=== PATIENT | female | born 1950 | race Caucasian/White ===

== ENCOUNTER 2017-01-06 11:05 | Inpatient (IN) ==
[2017-01-06] MEDS ORDERED: VALTREX PO SCH (12:00)
[2017-01-06] MEDS ORDERED: REMERON PO SCH (12:00)
--- NOTE | 2017-01-06 12:49 | Diag Imaging Result Doc PS360 ---
CHEST-2 VIEWS - 01/06/2017 INDICATION: CHF TECHNIQUE: COMPARISON: 11/06/2016 FINDINGS: There is a moderate left basilar pleural effusion. There is slight worsening cardiomegaly and mild pulmonary vascular congestion. No significant infiltrates or edema. IMPRESSION: Worsening from prior. Electronically signed by Stevan Martínez 01/06/2017 12:46 PM
--- NOTE | 2017-01-06 13:16 | Diag Imaging Result Doc PS360 ---
US ABDOMEN-COMPLETE - 01/06/2017 INDICATION: distension COMPARISON: CT from 10/16/2013 FINDINGS: There is a small right renal midpole cortical mass measuring about 1.3 cm. This is stable from the exam of 2013. There are a couple of small cysts in the liver measuring up to 2 cm. Liver background echotexture is somewhat fatty. The patient is not nothing by mouth. The gallbladder is mostly collapsed. No gallstones or inflammation. Common bile duct measures 3 mm. Aorta IVC and main portal vein are patent. Common bile duct measures 3 mm. The left kidney is normal. No abdominal free fluid. IMPRESSION: 1. Small right renal cortical nodule or complicated cyst stable from the prior CT. 2. Mild fatty liver. Benign cysts in the liver. Electronically signed by Stevan Martínez 01/06/2017 1:14 PM
[2017-01-06] MEDS ORDERED: DUONEB (A & A) INH PRN (13:51)
[2017-01-06] MEDS: LASIX 100 MG in NS 90 ML IV SCH (13:55)
[2017-01-06] MEDS ORDERED: ZAROXOLYN PO ONE (14:00)
--- NOTE | 2017-01-06 14:12 | HISTORY AND PHYSICAL ---
[employer] OFFICER: Dr. Naseem Srivastava. CHIEF COMPLAINT: Shortness of breath. HISTORY OF PRESENT ILLNESS: Ms. Luong is a pleasant, 66-year-old female with a history of congestive heart failure, lymphoma, chronic atrial fibrillation on anticoagulation, and also a history of pericardial tamponade status post pericardial window, who presents directly from Dr. Srivastava's office with progressive shortness of breath over the past week, along with epigastric fullness. She has been followed by Dr. Srivastava, has been trying to diurese at home without any success. She remains short of breath and has worsening extremity edema. Dr. Srivastava requested that we admit the patient directly to the [facility]. We are currently awaiting labs, but Dr. Srivastava has ordered diagnostics and Lasix drip. She denies any overt chest pain, but does report orthopnea, worsening lower extremity and abdominal edema, and dyspnea on exertion. She is now going to be admitted for congestive heart failure exacerbation. PAST MEDICAL HISTORY: 1. Non-Hodgkin lymphoma. 2. History of pericardial effusion status post window. 3. Chronic atrial fibrillation. 4. COPD. SURGICAL HISTORY: Bilateral tubal ligation, right wrist surgery, left femur ORIF, stem-cell transplant, port placement and removal, partial hysterectomy. SOCIAL HISTORY: Patient quit smoking in 2013. She reports occasional wine usage. She denies illicit drug use. She is . She lives in [facility]. FAMILY HISTORY: Renal cell cancer in brother, breast cancer in sister, coronary disease in both father and mother, as well as diabetes. HOME MEDICATIONS: Currently being compiled. ALLERGIES: Codeine. PHYSICAL EXAMINATION: VITAL SIGNS: Blood pressure is 98/77, heart rate 61, respiratory rate 16, O2 saturation 99% on room air and temperature is 97.7 degrees. GENERAL: This is a pleasant, 66-year-old female, lying in a hospital bed in no acute distress. NEUROLOGIC: The patient is alert and oriented. She follows commands without focal deficits. HEENT: Head is atraumatic, normocephalic. Her pupils are equal, round, and reactive to light. Oral mucosa is moist. NECK: Trachea is midline. There is no JVD. CHEST: Crackles bilaterally. CV: Irregular rate and rhythm. S1 and S2 is noted. GI: Slightly distended and firm, but no pain to palpation. Hypoactive bowel sounds. EXTREMITIES: 2+ edema bilaterally. Pulses diminished, but palpable. DIAGNOSTIC DATA: Pending. ASSESSMENT/PLAN: 1. Acute on chronic heart failure exacerbation: Echocardiogram has been ordered, as well as Lasix drip, digoxin, Zaroxolyn and Lopressor. We will follow strict intake/output and daily weights. Cardiology is following. 2. Chronic atrial fibrillation: We will continue her home medications, including metoprolol and anticoagulant. We will follow telemetry and check thyroid function. 3. History of lymphoma: Chronic and stable, aware. 4. Chronic obstructive pulmonary disease: Will add as-needed nebulizers and check a chest x-ray. 5. Deep vein thrombosis prophylaxis with home anticoagulant. Further recommendations to follow. Dictated by PRICILLA Ardon for Jose Max MD cc: PRICILLA Ardon MD Peter Johnson, MD
[2017-01-06 14:31] LABS: BASO% 0.4 % (0.0-0.8); EOS# 0.16 X1000 (0.0-0.7); EOS% 2.2 % (0.0-10.0); HEMOGLOBIN 12.7 g/dL (12.0-16.0); LYMPH% 24.3 % (20.5-51.1); MANUAL DIFF NEEDED? YES; MCH 38.5 PG (27-31); MCHC 34.3 g/dL (33-37); MCV 112.1 FL (81-99); MONO# 0.65 X1000 (0.11-0.59); MONO% 8.8 % (1.7-9.3); MPV 10.8 FL (7.4-10.4); NEUT% 64.3 % (42.2-75.2); PLT 144 X1000 (130-400)
[2017-01-06 14:36] LABS: INR 1.24; PROTIME 13.2 Seconds (9.2-11.7)
[2017-01-06 14:46] LABS: EOS 2 % (1-10); LYMPHS 20 % (21-51); MONO 7 % (1-9)
[2017-01-06 15:01] LABS: ALBUMIN 3.7 g/dL (3.5-5.0); CALCIUM 9.2 mg/dL (8.8-10.2); POTASSIUM 3.5 mmol/L (3.5-5.1); TOTAL BILIRUBIN 1.65 mg/dL (0.20-1.00); TOTAL PROTEIN 9.5 g/dL (6.3-8.3)
[2017-01-06] MEDS: LANOXIN PO SCH (15:36)
--- NOTE | 2017-01-06 15:36 | EKG Report ---
Test Performed on : 01/06/2017 3:18:04 PM Test Reason : CHF Blood Pressure : / mmHG Vent. Rate : 063 BPM Atrial Rate : 208 BPM P-R Int : 000 ms QRS Dur : 092 ms QT Int : 458 ms P-R-T Axes : 000 076 180 degrees QTc Int : 468 ms Atrial fibrillation. Low voltage QRS RSR' or QR pattern in V1 suggests right ventricular conduction delay T wave abnormality, consider anterior ischemia Abnormal ECG When compared with ECG of 01-APR-2016 15:16, DIffuse T wave inversion in V1-V6 - appears historical Confirmed by Wilmar Srivastava DO ([id number]) on 01/09/2017 8:07:24 PM
[2017-01-06] MEDS: LOPRESSOR PO SCH (15:37)
[2017-01-06] MEDS: PRILOSEC PO SCH (15:38)
[2017-01-06] MEDS: PREDNISONE PO SCH (15:38)
[2017-01-06] MEDS: PAXIL PO SCH (15:38)
[2017-01-06] MEDS: DUONEB (A & A) INH SCH ×3 (15:43→23:54)
[2017-01-06] MEDS: PERCOCET-5 PO PRN (15:52)
--- NOTE | 2017-01-06 16:58 | ECHO REPORT ---
ORDER DATE: 01/06/2017 INDICATION: Congestive heart failure. FINDINGS: 1. Right atrium is mildly enlarged at 4.9 cm. Moderate tricuspid regurgitation. RV systolic pressure is measured at 39. 2. Right ventricle does appear to be enlarged with bowing of the intraventricular septum to the left. This appears to be most prominent in diastole consistent with right ventricular volume overload. 3. No significant pulmonic insufficiency. 4. Mild left atrial enlargement at 4 cm. 5. No mitral prolapse. Mild mitral regurgitation. 6. Normal LV size, end-diastolic dimension of 4.1. No evidence of left ventricular hypertrophy. Likely normal LV systolic function. The estimated EF is in the range of 55%. 7. Aortic valve opens well. No evidence of stenosis or insufficiency. 8. Aorta appears normal in visualized segments. 9. No pericardial effusion. There does appear to be a significant pleural effusion present. 10. Aorta appears normal in visualized segments. cc: MD Jose Garza MD
[2017-01-06 18:43] LABS: URINE CULTURE NEEDED? NO; URINE MICRO REVIEW NEEDED? NO; URINE SOURCE CLEAN CATCH
[2017-01-06 19:19] LABS: BILIRUBIN URINE NEGATIVE (NEGATIVE); BLOOD URINE NEGATIVE (NEGATIVE); COLOR YELLOW; GLUCOSE URINE NEGATIVE (NEGATIVE); LEUKOCYTES URINE NEGATIVE (NEGATIVE); NITRITE URINE NEGATIVE (NEGATIVE); PH URINE 6.5; PROTEIN URINE NEGATIVE (NEGATIVE); SP GRAVITY URINE 1.005; TURBIDITY URINE CLEAR (CLEAR); UROBILINOGEN URINE NORMAL (NORMAL)
[2017-01-06 19:21] LABS: UR EPITHELIAL CELLS <10 /HPF (<10); URINE BACTERIA NEGATIVE /HPF; URINE RBC <10 /HPF (<10); URINE WBC <10 /HPF (<10)
[2017-01-06] MEDS: REMERON PO SCH (20:20)
--- NOTE | 2017-01-07 04:33 | CONSULTATION ---
DATE OF CONSULTATION: 01/06/2017 REQUESTING PHYSICIAN: Dr. Naseem Srivastava. REASON FOR CONSULTATION: Shortness of breath. HISTORY OF PRESENT ILLNESS: Ms. Luong is a 66-year-old, white female with extensive tobacco history (nonsmoker since 2013) who underwent a CT-guided biopsy of an anterior mediastinal mass and biopsy was consistent with a follicular lymphoma. Repeat biopsy was performed and the 2nd biopsy revealed a B-cell lymphoma, consistent with a diffuse large B-cell lymphoma. Patient continued to have progression of disease and ultimately required a stem cell transplant in 2014. This was an allogeneic transplant received from her brother. She reports she was on immunosuppression for over a year. This has been subsequently weaned to prednisone 10 mg per day. She has had some lddtk-nzqzjj-omed disease affecting her GI tract by her report. The patient was seen by her oncologist at [place] in late August or early September of this year, and a PET scan at that time revealed no evidence of FDG avid disease. She did have an interval increase in a moderate left-sided pleural effusion along with a small pericardial effusion and 4 chamber cardiomegaly. Over the last 4-5 weeks, patient has had increasing shortness of breath with increasing lower extremity edema. She now has to sleep in a recliner due to dyspnea. She has shortness of breath while walking across the room. She had an echocardiogram performed today which revealed normal LV function with moderate tricuspid regurgitation and an RV systolic pressure of 39. The patient has also noted increasing facial edema and has had some vessels break above her eyelids when she bends over. She has also noted some nodularity in her abdominal wall. PAST MEDICAL HISTORY/PROBLEM LIST: 1. 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 2. Status post allogeneic stem cell transplant. 3. Middi-kmowlm-fogd disease. 4. History of atrial fibrillation. 5. Pericardial effusion, status post subxiphoid pericardial window. 6. Hip fracture, status post hip replacement. SOCIAL HISTORY: Prior tobacco use. Occasional alcohol use. FAMILY HISTORY: Notable for breast cancer in a sister, coronary artery disease, diabetes mellitus, and renal cell carcinoma. PHYSICAL EXAMINATION: General: Reveals a well-developed, well-nourished, white female resting comfortably and in no distress. Vital Signs: BP 93/66, heart rate 66, respiration rate 16, oxygen saturation 99% on room air. HEENT: There is mild swelling of the face with slight facial asymmetry. The right cheek appears to be slightly larger than the left. There is mild bruising above the right eyelid. Oropharynx is clear. Neck: Supple. Chest: Reveals bilateral crackles, predominantly in the bases. Cardiac Examination: Regular rate. Normal S1, normal S2. Abdomen: Soft. There are some nodular areas below the skin surface. Extremities: Revealed 2+ pitting edema. LABORATORY DATA: Chest x-ray reveals left basilar effusion, cardiomegaly, with mild vascular congestion. White blood count 7.41, hemoglobin 12.7, platelet count 144,000, MCV is significantly elevated at 112, platelet count 144,000. Differential appears to be normal. Sodium 135, potassium 3.5, chloride 92, bicarbonate 31, BUN 25, creatinine 1.2. Bilirubin 1.65, AST 75, ALT 15, alkaline phosphatase 247. Total protein is significantly elevated at 9.5 g/dL. ProBNP is elevated at 5770. IMPRESSION: Complicated 66-year-old, white female with a history of tobacco use, history of chronic obstructive pulmonary disease, history of allogeneic stem cell transplant, history of pericardial effusion requiring pericardial window who presents with increasing shortness of breath, fluid overload on examination but evidence of prerenal status in chemistries, hyperproteinemia, macrocytosis, CBC. The patient reports occasional chills but no other signs of infectious process. Differential for presentation currently is broad. She has had a pericarditis and therefore constrictive pericarditis is in the differential but her heart size has actually increased over her last chest x-ray, making this less likely and this was not identified on echocardiogram. Pulmonary emboli is in the differential but previous CT angiogram last year and previous venous Dopplers have been negative, although that does not completely rule out this as part of the current etiology. The patient has had an allogeneic transplant and therefore, pulmonary venoocclusive disease is in the differential as well. The patient has moderate chronic obstructive pulmonary disease on pulmonary function tests earlier this year but her degree of obstruction clearly would not explain her current presentation. This appears to be more complex and simple diastolic/fluid overload or chronic obstructive pulmonary disease. RECOMMENDATIONS: 1. Proceed with CT scan of the thorax to ensure she does not have lymphadenopathy leading to venocaval obstruction. 2. Pulmonary function studies, although I doubt the etiology for her dyspnea will be identified on this study. 3. Consider right and left heart catheterization. If the patient has significant pulmonary hypertension with evidence of pulmonary edema but normal wedge pressure, venoocclusive disease would be more likely and may require a thoracoscopic wedge biopsy for confirmation. 4. Check immunoglobulin levels and a serum protein electrophoresis, given her hyperproteinemia. 5. Consider oncology evaluation for their input into the current presentation. cc: MD Jose Gasca MD
[2017-01-07] MEDS: DUONEB (A & A) INH SCH ×6 (05:03→23:02)
[2017-01-07 05:10] LABS: HEMATOCRIT 33.1 % (37.0-47.0); HEMOGLOBIN 11.3 g/dL (12.0-16.0); MCH 36.7 PG (27-31); MCHC 34.1 g/dL (33-37); MCV 107.5 FL (81-99); MPV 10.6 FL (7.4-10.4); RBC 3.08 XMIL (4.2-5.4)
[2017-01-07 05:31] LABS: AGAP 13; BUN 25 mg/dL (8-22); CALCIUM 9.2 mg/dL (8.8-10.2); CHLORIDE 92 mmol/L (98-107); CK PROFILE 53 U/L (24-173); COSMO 281; HDL 22 mg/dL (45-65); LDL 70 mg/dL; POTASSIUM 2.9 mmol/L (3.5-5.1); SODIUM 138 mmol/L (136-145); TCO2 33 mmol/L (25-35); TRIGLYCERIDES 174 mg/dL (35-135); VLDL 35 mg/dL
[2017-01-07] MEDS: PRILOSEC PO SCH (06:04)
[2017-01-07] MEDS: PERCOCET-5 PO PRN ×2 (08:09→14:41)
[2017-01-07] MEDS: LOPRESSOR PO SCH (08:11)
[2017-01-07] MEDS: PAXIL PO SCH (08:11)
[2017-01-07] MEDS: PREDNISONE PO SCH (08:11)
[2017-01-07] MEDS: LANOXIN PO SCH (08:12)
[2017-01-07] MEDS ORDERED: POTASSIUM CHLORIDE 40 MEQ/SWI 40 MEQ/100 ML IVPB IV ONE (08:26)
[2017-01-07] MEDS ORDERED: KLOR-CON PO ONE (08:27)
[2017-01-07] MEDS ORDERED: ZAROXOLYN PO ONE (09:48)
--- NOTE | 2017-01-07 10:06 | PROGRESS NOTE ---
DATE: 01/07/2017 SUBJECTIVE: She reports she feels better today. She has had a marked negative fluid output over the course of the last 12-24 hours. PHYSICAL EXAMINATION: Vital signs: Afebrile. Heart rates anywhere from the 50s to 80s. Blood pressure 116/86. Her I's and O's are -2.4 L for the course of the hospitalization. General: No acute distress. Cardiovascular: She sounds to be in an irregularly irregular but rate controlled rhythm. Her lower extremities show around 1+ lower extremity edema that are warm and well perfused. Her chest exam sounds relatively clear. No increased work of breathing. Abdomen is soft, nontender, and nondistended. PERTINENT DATA: Her white count is 6.7. Her hematocrit is 33. Platelet count is 154,000. D- dimer is 3.19. Sodium 138, potassium is 2.9. BUN 25, creatinine 1.2. Cardiac enzymes negative proBNP yesterday was 5770. ASSESSMENT: Heart failure with a predominance of right-sided type symptoms. PLAN: Her echocardiogram definitely showed right-sided volume overload. We will continue with IV diuresis. She was given 40 mEq of oral potassium this morning. I would like to additionally give her another 2.5 metolazone today and continue with diuresis. Tentative plan for cardiac catheterization in the morning via left and right heart catheterization. Risks, benefits, and alternatives of the procedure have been explained and she agrees to proceed. cc: MD Jose Garza MD
--- NOTE | 2017-01-07 10:13 | Diag Imaging Result Doc PS360 ---
CT THORAX W/O CONTRAST - 01/07/2017 INDICATION: dyspnea TECHNIQUE: A CT dose reduction protocol was used. COMPARISON: 04/01/2016 FINDINGS: Stable mild cardiomegaly. There is a small pericardial effusion that has decreased from prior. There are some shotty mediastinal lymph nodes but no adenopathy. There is a new trace right pleural effusion. There is a larger, but still small left pleural effusion. There is some retroperitoneal edema and possible mild adenopathy stable from prior. There are some stable small cysts in the liver. There is smooth intralobular septal thickening compatible with mild interstitial pulmonary edema. There is some stable pulmonary scarring in the apices. No significant infiltrates. Airways are clear. There are moderate degenerative changes of the spine. No acute or suspicious bony lesion. Stable moderate body wall edema. IMPRESSION: Mixed changes from prior. Mild pulmonary edema and small pleural effusions. Other findings as detailed above. Electronically signed by Stevan Martínez 01/07/2017 10:10 AM
[2017-01-07] MEDS ORDERED: ALBUTEROL NEB ONE (10:55)
[2017-01-07] MEDS: LOVENOX SUBQ SCH (11:40)
[2017-01-07] MEDS: LASIX 100 MG in NS 90 ML IV SCH (15:29)
--- NOTE | 2017-01-07 17:04 | PROGRESS NOTE ---
DATE: 01/07/2017 SUBJECTIVE: This patient states that she is feeling better. She is not complaining of shortness of breath or chest pain. The plan is to go ahead and get a cardiac cath tomorrow to see if there is any kind of arterial obstruction. She seems to understand the procedure, the risk, and the benefits. OBJECTIVE: Vital Signs: Temperature 98.1 degrees, pulse 76, respiratory rate 19, blood pressure 126/75. Oxygen saturation 97 on room air. HEENT: Head normocephalic. No trauma. PERRLA. Neck: Supple. No JVD. No masses. Central trachea. Chest: Mild rales at the bases. Abdomen: Soft, nontender, nondistended. No hepatosplenomegaly. Extremities: 3+ bilateral leg edema. No clubbing. No cyanosis. Neurological: The patient is alert and oriented x3. No focal neurological deficits. LABORATORY STUDIES: WBC 6.7, hemoglobin 11.3, hematocrit 33.1, platelets 154,000. Sodium 138, potassium 2.9, chloride 92, bicarbonate 33, BUN 25, creatinine 1.2, glucose 123, calcium 9.2. ASSESSMENT AND PLAN: 1. Qtzye-gg-yseccxw heart failure exacerbation, predominantly diastolic. Continue with the same management. She is on Lasix drip. Cardiology Department is following this patient closely. The plan is to get a cardiac cath tomorrow morning. We will continue to follow. 2. Hypokalemia. Will replace the potassium today. 3. Chronic atrial fibrillation. Continue with home medication, but her Eliquis has been stopped. Probably, we will restart this medication after the procedure. 4. History of lymphoma, chronic and stable. Continue to monitor. 5. Chronic obstructive pulmonary disease, not in exacerbation. 6. Deep vein thrombosis prophylaxis. Continue with Lovenox. cc: Jose Max MD
[2017-01-07] MEDS: REMERON PO SCH (20:14)
[2017-01-08] MEDS: DUONEB (A & A) INH SCH ×6 (03:15→22:50)
[2017-01-08] MEDS: PERCOCET-5 PO PRN ×2 (04:23→20:32)
[2017-01-08 05:06] LABS: HEMATOCRIT 33.4 % (37.0-47.0); HEMOGLOBIN 11.5 g/dL (12.0-16.0); MCHC 34.4 g/dL (33-37); MCV 110.2 FL (81-99); MPV 10.2 FL (7.4-10.4); RBC 3.03 XMIL (4.2-5.4)
[2017-01-08 05:33] LABS: CALCIUM 9.9 mg/dL (8.8-10.2); POTASSIUM 3.4 mmol/L (3.5-5.1)
[2017-01-08] MEDS: PRILOSEC PO SCH (06:08)
[2017-01-08] MEDS ORDERED: POTASSIUM CHLORIDE 20% LIQUID PO ONE (08:07)
[2017-01-08] MEDS ORDERED: MAGNESIUM SULFATE 2 GM/S.W.I. 2 GM/50 ML IVPB IV ONE (08:07)
[2017-01-08 08:16] LABS: INR 1.17; PROTIME 12.4 Seconds (9.2-11.7); PTT 30.1 Seconds (22.0-36.0)
[2017-01-08] MEDS: LANOXIN PO SCH (08:30)
[2017-01-08] MEDS: PREDNISONE PO SCH (08:31)
[2017-01-08] MEDS: LOPRESSOR PO SCH (08:31)
[2017-01-08] MEDS: PAXIL PO SCH (08:31)
[2017-01-08] MEDS: POTASSIUM CHLORIDE 20 MEQ/SWI 20 MEQ/100 ML IVPB IV SCH ×2 (08:38→14:27)
[2017-01-08] MEDS ORDERED: LOVENOX SUBQ SCH (09:00)
[2017-01-08] MEDS ORDERED: HEPARIN 1000 UNITS/NS 2,000 UNIT/1,000 ML IV.SOLN ONE (10:06)
[2017-01-08] MEDS: KEFZOL 1 GM/D5W 1 GM/50 ML IVPB IV SCH ×2 (10:37→17:33)
[2017-01-08] MEDS ORDERED: MORPHINE ONE (11:55)
[2017-01-08] MEDS ORDERED: CLAVE PUMP SET NO FILTER 12260 ONE (11:55)
[2017-01-08] MEDS ORDERED: CLAVE TWINSITE 32 IN 11959 ONE (11:55)
[2017-01-08] MEDS ORDERED: VERSED ONE (11:55)
[2017-01-08] MEDS ORDERED: NS 1,000 ML ONE (11:56)
[2017-01-08] MEDS ORDERED: NS 100 ML ONE (12:19)
--- NOTE | 2017-01-08 12:23 | PROGRESS NOTE ---
DATE: 01/08/2017 HISTORY OF PRESENT ILLNESS: Ms. Luong reports she feels better. Her breathing has improved overnight. She does report continued issues with swelling in her legs. PHYSICAL EXAMINATION: Her I's and O's are negative 7.3 L for the course of the hospitalization. She is afebrile. Heart rates in the 70s to 80s. Blood pressure is 103/73. General: She is in no acute distress. Cardiovascular: She sounds to be in an irregularly regular rhythm which is consistent with her atrial fibrillation. She has 1+ bilateral lower extremity edema in her bilateral lower extremities. Warm and well perfused. Chest: Sounds clear bilaterally. No increased work of breathing. Abdomen: Soft and nontender. Skin Exam: Shows erythematous changes with some streaking up the lateral portion of her right leg but otherwise somewhat diffuse involvement of her bilateral lower extremities from midshin down. LABORATORY DATA: Shows a white count of 7.6. Her hematocrit is 33. Platelet count 142,000. Sodium is 138, potassium 3.4. Her BUN is 24, creatinine is 1.1 Mag level is 1.3. ASSESSMENT: Heart failure with both right and a left-sided signs however right seems more prominent than left. PLAN: Her proBNP has reduced. We will continue her on her IV diuretics. She is due for right and left heart catheterization today. I have discussed her lower extremity erythema with the primary team and they may consider initiating antibiotics based on that. cc: MD Jose Garza MD
[2017-01-08] MEDS: LASIX 100 MG in NS 90 ML IV SCH (14:26)
[2017-01-08] MEDS: LOVENOX SUBQ SCH (14:27)
--- NOTE | 2017-01-08 14:29 | PROGRESS NOTE ---
DATE: 01/08/2017 SUBJECTIVE: No acute events overnight. This patient is getting today a cardiac cath. She is not complaining of chest pain or shortness of breath. Today she is presenting with bilateral leg redness. I do not see any source of infection only the erythema, no fever, no chills, but it looks like cellulitis. I will start this patient on Ancef and I will monitor this patient closely. OBJECTIVE: Vital Signs: Temperature 98.4 degrees, pulse 81, respiratory rate 18, blood pressure 103/73, O2 saturation 97% on room air. HEENT: Head normocephalic. No trauma. PERRLA. Neck: Supple. No JVD. No masses. Central trachea. Chest: Clear to auscultation. No wheezing. No rales. Abdomen: Soft, nontender, nondistended. No hepatosplenomegaly. Cardiovascular: RRR. Extremities: 3+ bilateral lower extremity edema with erythema up to the mid leg bilaterally, warm, not painful. Neurological: The patient is alert, oriented x3. No focal neurological deficits. LABORATORY: WBC 7.6, hemoglobin 11.5, hematocrit 33.4, platelets 142,000. Sodium 138, potassium 3.4, chloride 90, bicarbonate 31, BUN 24, creatinine 1.1, glucose 14,5 calcium 9.9, magnesium 1.3. BNP 3944. ASSESSMENT AND PLAN: 1. Acute on chronic heart failure exacerbation, systolic and diastolic. Continue with the same management. Cardiology Department following this patient. She is getting today a cardiac cath. We will wait for the recommendations. 2. Hypokalemia. I will replace the potassium today. 3. Hypomagnesemia has been replaced today. 4. Chronic atrial fibrillation. Continue with her home medications. But her Eliquis has been stopped for this procedure. 5. History of lymphoma, chronic and stable. Continue to monitor. 6. Possible bilateral lower extremity cellulitis. I do not see any source of infection. She is not having leukocytosis, fever or chills but it looks like cellulitis. Empirically I will start this patient on Ancef and I will continue to monitor this patient closely. 7. COPD not in exacerbation. 8. Deep vein thrombosis prophylaxis. Continue with the same management, she is on Lovenox. CRITICAL CARE TIME: 35 minutes. cc: Jose Max MD
[2017-01-08] MEDS ORDERED: MAALOX PLUS LIQUID PO PRN (14:30)
[2017-01-08] MEDS ORDERED: NS 1,000 ML IV SCH (15:00)
[2017-01-08] MEDS: REMERON PO SCH (20:32)
[2017-01-09] MEDS: KEFZOL 1 GM/D5W 1 GM/50 ML IVPB IV SCH ×3 (03:20→18:01)
[2017-01-09] MEDS: DUONEB (A & A) INH SCH ×6 (05:58→23:16)
[2017-01-09] MEDS: PRILOSEC PO SCH (06:05)
[2017-01-09 06:08] LABS: HEMATOCRIT 33.7 % (37.0-47.0); HEMOGLOBIN 11.5 g/dL (12.0-16.0); MCHC 34.1 g/dL (33-37); MCV 108.4 FL (81-99); MPV 10.8 FL (7.4-10.4); RBC 3.11 XMIL (4.2-5.4)
[2017-01-09 06:31] LABS: CALCIUM 9.2 mg/dL (8.8-10.2); POTASSIUM 3.6 mmol/L (3.5-5.1)
[2017-01-09] MEDS: PREDNISONE PO SCH (08:07)
[2017-01-09] MEDS: PAXIL PO SCH (08:07)
[2017-01-09] MEDS: LOPRESSOR PO SCH (08:07)
[2017-01-09] MEDS: LANOXIN PO SCH (08:07)
[2017-01-09] MEDS: PERCOCET-5 PO PRN ×2 (09:12→18:09)
[2017-01-09] MEDS: LOVENOX SUBQ SCH (10:16)
[2017-01-09] MEDS ORDERED: MAGNESIUM SULFATE 2 GM/S.W.I. 2 GM/50 ML IVPB IV ONE (12:33)
[2017-01-09] MEDS: LASIX 100 MG in NS 90 ML IV SCH (12:52)
--- NOTE | 2017-01-09 13:06 | PROGRESS NOTE ---
DATE: 01/09/2017 CHIEF COMPLAINT: Shortness of breath, swelling of the legs. SUBJECTIVE: Mrs. Luong is complaining of pain and redness of the left foot and some in the right foot. She denies having any chest pain. Her breathing is somewhat better. OBJECTIVE: Vital signs: Blood pressure is 113/69, temperature 98.6, pulse 77, respirations 18. General: She is awake, alert, follows commands. HEENT: Unremarkable. Chest: Diminished breath sounds at bases, no rales. Cardiac: Heart sounds are regular and rhythmic. She does have a 4th heart sound from the right side. Abdomen: Nontender, no masses, no hepatomegaly. Extremities: Showed edema with redness of the left leg with increased temperature, tenderness to touch. Less prominent on the right side. Neurological: Follows commands, moves four extremities. BLOOD WORK: Sodium 134, potassium 3.6, magnesium 1.6, chloride 92, carbon dioxide 33, BUN 22, creatinine 1.1. White count 7790, hemoglobin 11.5, platelet count 162,000. IMPRESSION: 1. Patient who presented with increasing dyspnea. She has progressive swelling of the lower extremities. Heart failure, right sided, is diagnosed. 2. History of B-cell lymphoma. 3. Status post allogenic stem cell transplant. 4. History of atrial fibrillation. 5. History of pericardial effusion. 6. Cellulitis versus gout. 7. suspect case of primary or secondary pulmonary vascular disease (arteriopathy ?) RECOMMENDATION: Will check a uric acid level now. Further advice will be forthcoming. Thank you for the opportunity to participate in her evaluation. cc: MD Jose Zhou MD [facility]
--- NOTE | 2017-01-09 14:28 | PROGRESS NOTE ---
DATE: 01/09/2017 Account #8 H. danyelle Juarez [id number]. SUBJECTIVE: No acute events overnight. This patient had a cardiac catheterization done yesterday. Cardiology department has been following this patient closely. Today she is not complaining of shortness of breath or chest pain. She still has some redness at the level of the lower extremities. Will continue to monitor closely. OBJECTIVE: Vital Signs: Temperature 98.6 degrees, pulse 77, respiratory rate 18, blood pressure 113/69, oxygen saturation 94 on room air. HEENT: Head normocephalic. No trauma. PERRLA. Neck: Supple. No JVD. No masses. Central trachea. Chest: Clear to auscultation. No wheezing. No rales. Abdomen: Soft, nontender, nondistended. No hepatosplenomegaly. Cardiovascular: RRR. Extremities: 3+ lower extremity edema bilaterally with erythema up to the mid leg bilaterally that is better than yesterday mostly on the left side. Neurological: The patient is alert and oriented x3. No focal neurological deficits. LABORATORY: WBC 7.7, hemoglobin 11.5, hematocrit 33.7, platelet 162,000. Sodium 134, potassium 3.6, chloride 92, bicarbonate 33, BUN 22, creatinine 1.1, glucose 111, calcium 9.2, magnesium 1.6. ASSESSMENT AND PLAN: 1. Acute on chronic heart failure exacerbation, systolic and diastolic. Continue with the same management. Cardiology Department is following this patient closely status post cardiac catheterization. We will continue following their recommendations. 2. Hypokalemia resolved. 3. Hypomagnesemia resolved. 4. Chronic atrial fibrillation. Continue with Eliquis. 5. History of lymphoma. This is chronic and stable. Continue to monitor. 6. Possible bilateral lower extremity cellulitis. I do not see any lesion that can explain the infection, she is not having fever or chills or leukocytosis but this lesion looks like cellulitis. Empirically I started this patient already on Ancef and I will continue to monitor this patient closely, today her right lower extremity looks better compared with the left 1 but overall both of them are a little bit better. 7. Chronic obstructive pulmonary disease not in exacerbation. 8. Deep vein thrombosis prophylaxis. I put this patient back on Eliquis and I stopped the Lovenox. cc: Jose Max MD
[2017-01-09] MEDS: ELIQUIS PO SCH (20:26)
[2017-01-09] MEDS: REMERON PO SCH (20:26)
[2017-01-10] MEDS: KEFZOL 1 GM/D5W 1 GM/50 ML IVPB IV SCH ×3 (02:40→18:15)
[2017-01-10] MEDS: PERCOCET-5 PO PRN ×2 (02:42→18:17)
[2017-01-10] MEDS: DUONEB (A & A) INH SCH ×4 (03:17→23:27)
[2017-01-10] MEDS: PRILOSEC PO SCH (06:09)
[2017-01-10 06:26] LABS: CALCIUM 8.8 mg/dL (8.8-10.2); POTASSIUM 3.4 mmol/L (3.5-5.1)
[2017-01-10 06:50] LABS: BASO% 0.4 % (0.0-0.8); EOS# 0.57 X1000 (0.0-0.7); EOS% 7.3 % (0.0-10.0); HEMATOCRIT 33.1 % (37.0-47.0); HEMOGLOBIN 11.4 g/dL (12.0-16.0); LYMPH# 1.83 X1000 (1.2-3.4); LYMPH% 23.4 % (20.5-51.1); MANUAL DIFF NEEDED? YES; MCH 37.1 PG (27-31); MCHC 34.4 g/dL (33-37); MCV 107.8 FL (81-99); MONO# 0.85 X1000 (0.11-0.59); MONO% 10.9 % (1.7-9.3); MPV 10.6 FL (7.4-10.4); PLT 159 X1000 (130-400); RBC 3.07 XMIL (4.2-5.4)
[2017-01-10] MEDS ORDERED: SOLU-MEDROL IV ONE (07:53)
[2017-01-10] MEDS ORDERED: KLOR-CON PO ONE (08:04)
[2017-01-10] MEDS: LOPRESSOR PO SCH (08:08)
[2017-01-10] MEDS: LANOXIN PO SCH (08:08)
[2017-01-10] MEDS: PREDNISONE PO SCH (08:08)
[2017-01-10] MEDS: ELIQUIS PO SCH ×2 (08:08→20:29)
[2017-01-10] MEDS: PAXIL PO SCH (08:08)
[2017-01-10] MEDS: COLCRYS PO SCH ×5 (08:09→20:29)
--- NOTE | 2017-01-10 13:21 | PROGRESS NOTE ---
DATE: 01/10/2017 CHIEF COMPLAINT: Shortness of breath, swelling. SUBJECTIVE: Ms. Luong is feeling generally better. The redness of the leg has decreased significantly. We had done blood work on her that indicated her uric acid was 13.6 mg%, and we ordered a dose of Solu Medrol and several doses of colchicine. She is feeling better in that area. OBJECTIVE: Blood pressure is 106/74, temperature 98 degrees, pulse 74, respirations 18. She is awake, alert, oriented, in no distress. HEENT is unremarkable. Chest shows relatively clear lungs. Heart sounds are regular and rhythmic, questionable third heart sound on the left sternal border. Abdomen is obese, nontender. Extremities showed less redness of the legs. Pulses are good. Neurologic: Follows commands. Moves all 4 extremities. IMPRESSION: 1. 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 2. History of B cell lymphoma, status post allogeneic stem cell transplantation. 3. History of previous pericardial effusion. 4. Hyperuricemia/gout. RECOMMENDATIONS: At this point in time, I would suggest to continue present therapy. 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 Thank you for the opportunity to participate in her evaluation. cc: MD Jose Zhou MD MTDD
--- NOTE | 2017-01-10 13:30 | PROGRESS NOTE ---
DATE: 01/10/2017 SUBJECTIVE: No acute events overnight. Cardiology Department following this patient closely. She has and elevated uric acid. This patient has a gout flare and she has been treated today. I will keep this patient in the CIC unit. Tomorrow Dr. Naseem Srivastava will evaluate this patient. We will have a plan. OBJECTIVE: Vital Signs: Temperature 98 degrees, pulse 74, respiratory rate 18, blood pressure 106/74, oxygen saturation 92 on room air. Head: Normocephalic. No trauma. Eyes: PERRLA. Neck: Supple. No JVD. No masses. Central trachea. Chest: Clear to auscultation. No wheezing. No rales. Abdomen: Soft, nontender, nondistended. No hepatosplenomegaly. Cardiovascular: RRR. Extremities: 2+ lower extremity edema bilaterally with erythema that is almost resolved on the right side and is better on the left side. Neurological: The patient is alert, oriented x3. No focal neurological deficits. LABORATORY: WBC 7.8, hemoglobin 11.4, hematocrit 33.1, platelet 159,000. Sodium 137, potassium 3.4, chloride 89, bicarbonate 32, BUN 24, creatinine 1.1, glucose 122, calcium 8.8. ASSESSMENT AND PLAN: 1. Acute on chronic heart failure exacerbation, systolic and diastolic. Continue with the same management for now. Cardiology Department following this patient closely. 2. Hypokalemia, resolved. I will replace the potassium today. 3. Hypomagnesemia, resolved. 4. Chronic atrial fibrillation. Continue with Eliquis. 5. Gout flare. This patient has been treated today. I will continue monitoring and treating this patient. 6. Possible bilateral lower extremity cellulitis. Even though I did not see any source of infection, I started this patient on Ancef. Today we have a positive uric acid that is elevated and this is likely a gout flare. 7. Chronic obstructive pulmonary disease, not in exacerbation. 8. Deep vein thrombosis prophylaxis. Continue with the same management. CRITICAL CARE TIME: 35 minutes. cc: Jose Max MD
[2017-01-10] MEDS: LASIX 100 MG in NS 90 ML IV SCH (15:24)
[2017-01-10] MEDS: REMERON PO SCH (20:29)
[2017-01-11] MEDS: PERCOCET-5 PO PRN ×3 (02:19→20:32)
[2017-01-11] MEDS: KEFZOL 1 GM/D5W 1 GM/50 ML IVPB IV SCH ×3 (02:21→18:22)
[2017-01-11] MEDS: DUONEB (A & A) INH SCH ×6 (03:45→23:15)
[2017-01-11 06:22] LABS: BASO% 0.1 % (0.0-0.8); HEMATOCRIT 33.8 % (37.0-47.0); HEMOGLOBIN 11.5 g/dL (12.0-16.0); IMM GRAN# 0.02 X1000 (0.0-0.04); IMM GRAN% 0.2 % (0.0-0.5); LYMPH# 1.36 X1000 (1.2-3.4); LYMPH% 13.2 % (20.5-51.1); MANUAL DIFF NEEDED? YES; MCH 36.7 PG (27-31); MONO# 0.77 X1000 (0.11-0.59); MONO% 7.4 % (1.7-9.3); MPV 10.8 FL (7.4-10.4); NEUT% 79.1 % (42.2-75.2); PLT 164 X1000 (130-400); POTASSIUM 3.8 mmol/L (3.5-5.1); RBC 3.13 XMIL (4.2-5.4)
[2017-01-11] MEDS: PRILOSEC PO SCH (06:37)
--- NOTE | 2017-01-11 07:17 | Diag Imaging Result Doc PS360 ---
EXAM: CHEST-1 VIEW HISTORY: SOB TECHNIQUE: AP portable at 0500 COMMENT: There is cardiomegaly. Compared to the previous study of 01/06/2017 there has been improvement in the basilar opacities and the pleural effusion on the left. There may be some slight residual pulmonary edema. IMPRESSION: Improved pulmonary edema, left lower lobe atelectasis and left pleural effusion. Electronically signed by Viktor Kitchen 01/11/2017 7:15 AM
[2017-01-11 08:36] LABS: LYMPHS 10 % (21-51); MONO 4 % (1-9)
--- NOTE | 2017-01-11 09:17 | Extremity Venous Study ---
PROCEDURE NAME: Venous U/S Bilateral Legs - 01/07/2017 NEON LIGHT INSTALLER: Ryan REQUESTING PHYSICIAN: Dr. Kowalski INDICATION: Edema. FINDINGS: The deep and superficial veins of bilateral lower extremities were visualized along their course. All veins compressible, forward flow. No evidence of intraluminal thrombus. There was pulsatile signal noted in all locations. This can be seen in the setting of congestive heart failure. SUMMARY: No deep or superficial venous thrombosis seen in bilateral lower extremities. cc: MD Jose Zarco MD
[2017-01-11] MEDS: COLCRYS PO SCH ×2 (10:19→20:32)
[2017-01-11] MEDS: LANOXIN PO SCH (10:20)
[2017-01-11] MEDS: PAXIL PO SCH (10:20)
[2017-01-11] MEDS: ELIQUIS PO SCH ×2 (10:20→20:32)
[2017-01-11] MEDS: ZYLOPRIM PO SCH (10:20)
[2017-01-11] MEDS: LOPRESSOR PO SCH (10:21)
[2017-01-11] MEDS: PREDNISONE PO SCH (10:21)
[2017-01-11] MEDS: LASIX 100 MG in NS 90 ML IV SCH (14:02)
--- NOTE | 2017-01-11 14:37 | PROGRESS NOTE ---
DATE: 01/11/2017 SUBJECTIVE: No acute events overnight. Cardiology Department following this patient closely. She is still on furosemide drip. This patient also has a gout flare which is being treated. OBJECTIVE: Vital Signs: Temperature 97.8 degrees, pulse 88, respiratory rate 18, blood pressure 110/78, oxygen saturation 97% on room air. HEENT: Head normocephalic. No trauma. PERRLA. Neck: Supple. No JVD. No masses. Central trachea. Chest: Clear to auscultation. No wheezing. No rales. Abdomen: Soft, nontender, nondistended. No hepatosplenomegaly. Cardiovascular: Regular rate and rhythm. Extremities: There is 1-2+ lower extremity edema with some erythema at the level of the left foot, dorsal aspect. Neurological Examination: The patient is alert and oriented x3. No focal neurological deficits. LABORATORY: WBC 10.3, hemoglobin 11.5, hematocrit 33.8, platelets 164,000. Sodium 134, potassium 3.8, chloride 88, bicarbonate 31. BUN 35, creatinine 1.2. Glucose 235. Calcium 9. Pro-B-type natriuretic peptide 5641. ASSESSMENT AND PLAN: 1. Acute on chronic heart failure exacerbation, systolic and diastolic. Cardiology department following this patient closely. Continue with the same management for now. 2. Hypokalemia, resolved. 3. Hypomagnesemia, resolved. 4. Chronic atrial fibrillation. Continue with Eliquis. 5. Gout flare. Continue with the same management. 6. Possible bilateral lower extremity cellulitis. Even though I do not see any source of infection and this is likely related to gout flare, this patient has been treated with antibiotics. Probably tomorrow I will stop the treatment. 7. Chronic obstructive pulmonary disease, not in exacerbation. 8. Deep vein thrombosis prophylaxis. Continue with the same management. CRITICAL CARE TIME: Was 35 minutes. cc: Jose Max MD
--- NOTE | 2017-01-11 15:48 | PROGRESS NOTE ---
DATE: 01/11/2017 SUBJECTIVE: The patient reports she was doing much better over the course of the weekend. Her I's and O's are markedly negative being -13.8 L for the course of the hospitalization. PHYSICAL EXAMINATION: Vital Signs: She is afebrile, heart rate 88, blood pressure 110/70. General: In no acute distress. Cardiovascular: She sounds to be in an irregularly irregular rhythm. No murmurs. She has trace lower extremity edema. Chest: Examination sounds relatively clear to auscultation. Abdomen: Soft, nontender, nondistended. No obvious organomegaly. Skin: Examination is warm and dry throughout. PERTINENT DATA: Her white count is 10.3, hematocrit is 33.8, platelet count 164 ,000. Her sodium is 134, potassium 3.8, BUN 35, creatinine is 1.2. proBNP is 5641 with the last 1 being 3944. ASSESSMENT: Heart failure with predominantly right-sided symptoms. PLAN: Patient's cardiac catheterization numbers were reviewed with a wedge of 24, mean PA of 38, RA of 25, RV 50/15 with an LV end-diastolic pressure of 12. This would suggest predominantly elevation of right-sided pressures with a normal left-sided filling pressure. There must be a concern for pulmonary hypertension in this setting. In addition, she has a cardiac output and cardiac index which are low in the setting of a normal ejection fraction. She has a history of being followed at [place] for her lymphoma and subsequent treatment. We will likely try to arrange for followup at [place] for pulmonary hypertension evaluation. I believe we can discontinue her IV drip of furosemide and transition her over to 40 mg IV b.i.d. Hopefully we can eventually transition her over to oral medications within the next couple of days. Her gout flare that she was experiencing certainly seems to be much better. Her lower extremities are much improved with much less erythema and tenderness. Her cardiac cath this hospitalization demonstrated normal coronaries. cc: MD Jose Garza MD MTDD
[2017-01-11] MEDS: MIRALAX PO SCH (16:57)
[2017-01-11] MEDS: REMERON PO SCH (20:32)
[2017-01-11] MEDS: LASIX IV SCH (20:33)
--- NOTE | 2017-01-11 21:13 | CARDIAC CATH REPORT ---
PROCEDURE NAME: - PROCEDURE PERFORMED: Right heart catheterization, left heart catheterization, selective coronary angiography, and left ventriculography. Entry site right femoral vein and right femoral artery. CATHETERS USED: A 6-B[place]wan[place] thermodilution, 5-[place]wan[place] JL4, 5-[place] 3 DRC, and 5-[place] angled pigtail. TECHNIQUE: After intravenous sedation with morphine and Versed, local anesthesia with lidocaine was applied over right femoral vein right femoral artery. Venous access was established with placement of a 6-B[place]wan[place] sheath in the right femoral vein using modified Seldinger technique. Arterial access was established with placement of a 5-[place]wan[place] sheath in the right femoral artery using modified Seldinger technique. Right heart catheterization was performed. Following this, coronary angiography was performed followed by left heart catheterization and left ventriculography. Upon completion of procedure, venous and arterial sheaths were removed from right femoral vein and right femoral artery, respectively, and hemostasis facilitated with manual pressure. The patient tolerated the procedure without apparent complications. FINDINGS: Hemodynamics: Right atrial mean pressure 25, right ventricular pressure 50 over EDP of 15, pulmonary artery pressure 53/27, pulmonary capillary wedge pressure mean of 24. Cardiac output thermodilution 3.5 L/minute with a cardiac index of 1.6 L/minute per sq. m. Cardiac output by Dioni method 2.9 L/minute. Mixed venous oxygen saturation (pulmonary artery) 51%, femoral artery saturation 98%. ANGIOGRAPHY: 1. Left ventriculogram: The left ventricle is of normal size without wall motion abnormality evident on SCOTT projection. Estimated left ejection fraction is 60%. There is no significant mitral regurgitation. 2. Left main coronary: Left main coronary artery is angiographically normal. 3. Left anterior descending coronary: The left anterior descending coronary and its branches are free of significant coronary stenosis. 4. Left circumflex coronary: Left circumflex coronary artery and its branches are free of significant coronary stenosis. 5. Right coronary: The dominant right coronary and its branches are free of significant coronary stenosis. CONCLUSIONS: 1. Elevated right ventricular filling pressures and right atrial pressure. 2. Elevated pulmonary capillary wedge pressure. 3. Reduced cardiac index. 4. Normal left ventricular systolic function without wall motion abnormality evident on SCOTT projection. 5. Right dominant coronary anatomy with no significant coronary obstructive lesions. cc: MD Jose Chapin MD
[2017-01-12] MEDS: KEFZOL 1 GM/D5W 1 GM/50 ML IVPB IV SCH ×2 (02:27→09:39)
[2017-01-12] MEDS: DUONEB (A & A) INH SCH ×4 (03:29→11:38)
[2017-01-12 05:57] LABS: CALCIUM 9.4 mg/dL (8.8-10.2); POTASSIUM 3.6 mmol/L (3.5-5.1)
[2017-01-12] MEDS: PRILOSEC PO SCH (06:18)
[2017-01-12] MEDS: ELIQUIS PO SCH (08:08)
[2017-01-12] MEDS: MIRALAX PO SCH (08:08)
[2017-01-12] MEDS: LASIX IV SCH (08:08)
[2017-01-12] MEDS: COLCRYS PO SCH (08:08)
[2017-01-12] MEDS: LANOXIN PO SCH (08:09)
[2017-01-12] MEDS: PAXIL PO SCH (08:09)
[2017-01-12] MEDS: ZYLOPRIM PO SCH (08:09)
[2017-01-12] MEDS: PREDNISONE PO SCH (08:09)
[2017-01-12] MEDS: LOPRESSOR PO SCH (08:09)
[2017-01-12] MEDS: PERCOCET-5 PO PRN (09:40)
[2017-01-12 11:58] VITALS: BP 104/71
--- NOTE | 2017-01-12 19:11 | DISCHARGE SUMMARY ---
ADMISSION DATE: 01/06/2017 DISCHARGE DATE: 01/12/2017 PERTINENT PROCEDURES: 1. Abdominal ultrasound showed small right renal cortical nodule or complicated cyst stable from prior CT, mild fatty liver, benign cyst on liver. 2. Echocardiogram showed an EF of 55%. 3. Chest CT showed mixed changes from prior mild pulmonary edema and small pleural effusion. 4. Bilateral lower extremity venous Doppler showed no deeper superficial venous thrombosis. 5. Right and left heart catheterization showed elevated right ventricular filling pressures and right atrial pressures elevated, pulmonary capillary wedge pressures, 24 and a mean PA of 38. LV end-diastolic pressure 12, BNP 38, RA 25 and RV 50/15. Right dominant coronary anatomy with significant no coronary obstructing lesions. DISCHARGE DIAGNOSES: 1. Heart failure with predominantly right-sided symptoms. Pulmonology would like to arrange for followup at [place] for pulmonary hypertension evaluation given that she is followed at [place] for her lymphoma and subsequent treatment. 2. Hypokalemia resolved. 3. Hypomagnesia resolved. 4. Chronic atrial fibrillation. Continue Eliquis. 5. Gout flare. Continue with current management. 6. Chronic obstructive pulmonary disease without exacerbation. Questionable bilateral lower extremity cellulitis ruled out for pulmonary embolism, gout flare flare. She was initially treated empirically on antibiotics. The patient was afebrile and no white count, and could not find any source of infection. 7. B-cell lymphoma status post allogenic stem cell transplant history from [place]. HOSPITAL COURSE: Ms. Luong is a 66-year-old female with a history of congestive heart failure, lymphoma, chronic atrial fibrillation on anticoagulation, history of pericardial tamponade status post pericardial window, who presented directly from Dr. Srivastava's office with progressive shortness of breath for 1 week along with epigastric fullness. She has been followed by Dr. Srivastava and has been trying to diurese at home without any success. She remained short of breath with worsening extremity edema. Dr. Srivastava requested that we admit directly to the [facility]. She was initiated on a Lasix drip, continued digoxin, Zaroxolyn and Lopressor, placed on strict I's and O's and daily weights, and continued on her anticoagulation. Pulmonary was also consulted to rule out anything pulmonary. There was no DVT, no PE and no pneumonia seen on her chest CT. Just showed mild pulmonary edema and small pleural effusions. Her echocardiogram showed right- sided volume overload. She was continued on Lasix drip where she developed some lower extremity erythema and they held her left and right heart catheterization and initiated on some antibiotics. Dr. Segundo checked a uric acid level, it was 13.6. He ordered Solu-Medrol and several doses of colchicine. On 01/11/2017 patient did undergo her right and left heart catheterization that did show heart failure with predominantly right-sided symptoms. Cardiology would like for her to follow up for pulmonary hypertension evaluation at [place] since she is followed by them for her lymphoma and subsequent treatment. They discontinued her IV Lasix drip and transitioned her to 40 mg b.i.d. and then transition to oral. She had much improvement in her lower extremities with less erythema and tenderness. Her antibiotics were discontinued. VITAL SIGNS AT TIME OF DISCHARGE: Temperature is 98.7 degrees, heart rate 71, respirations 16, blood pressure 104/71, O2 is 93% on room air. DISCHARGE DIET: Healthy heart. DISCHARGE MEDICATIONS: 1. Allopurinol 100 mg p.o. daily. 2. Eliquis 2.5 mg p.o. b.i.d. 3. Zyrtec 10 mg p.o. daily. 4. Colcrys 0.6 mg p.o. b.i.d. 5. Digoxin 125 mcg p.o. daily. 6. Vitamin D2 50,000 units p.o. as directed. 7. Lasix 60 mg p.o. b.i.d. 8. Maalox Plus 30 mL p.o. q. 3 hours p.r.n. 9. Lopressor 25 mg p.o. daily. 10. Remeron 15 mg p.o. at bedtime. 11. Prilosec 40 mg p.o. daily. 12. Percocet 5/325, 1.5 tablets p.o. q. 8 hours p.r.n. 13. Paxil 30 mg tablet p.o. daily. 14. MiraLAX 17 g p.o. daily. 15. Prednisone 5 mg p.o. daily. 16. Valtrex 500 mg p.o. b.i.d. FOLLOWUP: Ms. Luong is being discharged back home. She will follow up with Dr. Naseem Srivastava on 02/09/2017 and follow-up in [place] for workup for her pulmonary hypertension. She is to take all medications as prescribed. Return to the ED for any worsening of symptoms. Discharge time 30 minutes. Dictated by PRICILLA Cardoza for Jose Max MD cc: Jose Max MD MTDD
[2017-01-13] MEDS ORDERED: LASIX PO SCH (09:00)
[2017-01-13 10:35] LABS: HIV ANTIBODY SCREEN SEE COMMENTS
--- NOTE | 2017-01-23 17:48 | PULMONARY FUNCTION REPORT ---
DATE: 01/07/2017 REQUESTING PHYSICIAN: Dr. Carlos Kowalski. CLINICAL HISTORY: A 66-year-old with 60 pack year history for tobacco with shortness of breath after any exertion. SPIROMETRY: The FVC is 2.34 L or 52% of predicted. FEV1 is 1.77 L or 51% of predicted. FEV1/FVC ratio is 76%. The FEF 25-75 is 1.53 L/seconds or 55% of predicted. There is no change in spirometry following bronchodilator. LUNG VOLUMES: Total lung capacity is mildly reduced at 5.08 L or 77% of predicted. Residual volume is normal at 2.94 L or 114% of predicted. The FRC is normal at 3.14 L or 82% of predicted. DIFFUSION: DLCO not corrected for hemoglobin level is moderate to severely reduced at 15.21 mL/minute mmHg or 40% of predicted. IMPRESSION: 1. Moderate combined restrictive and obstructive physiology. 2. No change in spirometry following bronchodilator. 3. Moderate to severe reduction in diffusion capacity. cc: Carlos Kowalski MD
== END 2017-01-12 13:29 | disposition home or self-care (01) ==
LOC: DIRADM 11:05 → SUATTDRO 11:05 → 3S 11:39
PROVIDERS: ATTEND Internal Medicine

== ENCOUNTER 2017-02-21 19:03 | Inpatient (IN) ==
[2017-02-21 20:24] LABS: URINE CULTURE NEEDED? NO; URINE MICRO REVIEW NEEDED? NO; URINE SOURCE CATH
[2017-02-21 20:30] LABS: BILIRUBIN URINE NEGATIVE (NEGATIVE); BLOOD URINE MODERATE (NEGATIVE); COLOR YELLOW; GLUCOSE URINE NEGATIVE (NEGATIVE); LEUKOCYTES URINE NEGATIVE (NEGATIVE); NITRITE URINE NEGATIVE (NEGATIVE); PH URINE 6.5; PROTEIN URINE NEGATIVE (NEGATIVE); SP GRAVITY URINE 1.007; TURBIDITY URINE CLEAR (CLEAR); UROBILINOGEN URINE NORMAL (NORMAL)
[2017-02-21 20:31] LABS: UR EPITHELIAL CELLS <10 /HPF (<10); URINE BACTERIA NEGATIVE /HPF; URINE RBC <10 /HPF (<10); URINE WBC <10 /HPF (<10)
[2017-02-21 20:51] LABS: BASO% 0.4 % (0.0-0.8); EOS# 0.02 X1000 (0.0-0.7); EOS% 0.2 % (0.0-10.0); HEMATOCRIT 35.3 % (37.0-47.0); HEMOGLOBIN 12.4 g/dL (12.0-16.0); IMM GRAN# 0.02 X1000 (0.0-0.04); IMM GRAN% 0.2 % (0.0-0.5); LYMPH# 2.68 X1000 (1.2-3.4); LYMPH% 21.7 % (20.5-51.1); MANUAL DIFF NEEDED? NO; MCH 36.9 PG (27-31); MCHC 35.1 g/dL (33-37); MCV 105.1 FL (81-99); MONO# 0.99 X1000 (0.11-0.59); MPV 11.1 FL (7.4-10.4); NEUT% 69.5 % (42.2-75.2); PLT 165 X1000 (130-400); RBC 3.36 XMIL (4.2-5.4)
[2017-02-21 21:07] LABS: ALBUMIN 3.3 g/dL (3.5-5.0); CALCIUM 8.9 mg/dL (8.8-10.2); MAGNESIUM 1.4 mg/dL (1.5-2.7); POTASSIUM 2.8 mmol/L (3.5-5.1); TOTAL BILIRUBIN 2.8 mg/dL (0.20-1.00); TOTAL PROTEIN 8.9 g/dL (6.3-8.3)
--- NOTE | 2017-02-21 21:33 | Diag Imaging Result Doc PS360 ---
EXAM: CT HEAD W/O CONTRAST HISTORY: altered mental status TECHNIQUE: CT brain without contrast. Dose reduction protocol. COMPARISON: 07/30/2014 FINDINGS: No parenchymal hemorrhage. No epidural or subdural hematoma. No subarachnoid hemorrhage. No mass identified on this noncontrasted exam. No hydrocephalus. No sinus opacification. IMPRESSION: No hemorrhage. Negative brain CT without contrast. Electronically signed by Conrad Lopez 02/21/2017 9:30 PM
[2017-02-21] MEDS ORDERED: MAGNESIUM SULFATE 2 GM/S.W.I. 2 GM/50 ML IVPB IV ONE ×2 (21:54→23:08)
[2017-02-21] MEDS ORDERED: LASIX IV ONE (21:54)
[2017-02-21] MEDS ORDERED: POTASSIUM CHLORIDE 20% LIQUID PO ONE (22:04)
--- NOTE | 2017-02-21 22:14 | PROVIDER DOCUMENTATION ---
This chart was entered by Saskia Ervin Scribe, acting as scribe for Bertin Gomes DO. HPI-General Adult - General Stated Complaint: weakness and confusion Time Seen by Provider: 02/21/17 19:21 Source: patient Allergies/Adverse Reactions: Patient Allergies Allergy/AdvReac Type Severity Reaction Status Date / Time codeine [Codeine] Allergy Mild NAUSEA Verified 11/27/15 09:52 Home Medications: Home Medication List Medication Instructions Recorded Confirmed Last Taken Type Omeprazole [Prilosec] 40 mg PO DAILY 06/16/12 01/06/17 01/06/17 08:00 History 40 mg Cetirizine [Zyrtec] 10 mg PO DAILY 06/29/12 01/06/17 01/06/17 08:00 History 10 mg Mirtazapine [Remeron] 15 mg PO HS 11/14/13 01/06/17 01/05/17 20:00 History 15 mg Paroxetine HCl [Paxil] 1 tab PO DAILY 11/14/13 01/06/17 01/06/17 08:00 History 1 tab Ergocalciferol (Vitamin D2) 50,000 unit PO DIRECTED 07/30/14 01/06/17 20:00 History [Vitamin D2] 50,000 units Valacyclovir [Valtrex] 500 mg PO BID 07/30/14 01/06/17 01/06/17 08:00 History 500 mg Apixaban [Eliquis] 2.5 mg PO BID 01/27/16 01/06/17 01/06/17 08:00 History 2.5 MG Digoxin 0.125 mg PO DAILY 01/27/16 01/06/17 01/06/17 08:00 History 0.125 mcg Metoprolol [Lopressor] 25 mg PO DAILY 01/27/16 01/06/17 01/06/17 08:00 History 25 mg Furosemide 60 mg PO BID 04/01/16 01/06/17 01/06/17 08:00 History 60 mg Prednisone 10 mg PO DAILY 04/01/16 01/06/17 01/06/17 08:00 History 10 mg Allopurinol [Zyloprim] 100 mg PO DAILY #30 tablet 01/12/17 Unknown Rx Apixaban [Eliquis] 2.5 mg PO BID #120 tablet 01/12/17 Unknown Rx Colchicine [Colcrys] 0.6 mg PO BID #20 tablet 01/12/17 Unknown Rx Digoxin [Lanoxin] 125 microgm PO DAILY #90 tablet 01/12/17 Unknown Rx Furosemide [Lasix] 60 mg PO BID #120 tablet 01/12/17 Unknown Rx Mag Hydrox/Al Hydrox/Simeth 30 ml PO Q3H PRN PRN #0 udc 01/12/17 Unknown Rx [Maalox Plus Liquid] Metoprolol [Lopressor] 25 mg PO DAILY #90 tablet 01/12/17 Unknown Rx Mirtazapine [Remeron] 15 mg PO HS tablet 01/12/17 Unknown Rx Omeprazole [Prilosec] 40 mg PO DAILY@0700 capsule 01/12/17 Unknown Rx Oxycodone/APAP 5 mg/325 mg 1.5 each PO Q8H PRN PRN #15 tablet 01/12/17 Unknown Rx [Percocet-5] Polyethylene Glycol 3350 [Miralax] 17 gm PO DAILY powder, packet 01/12/17 Unknown Rx Prednisone 5 mg PO DAILY tablet 01/12/17 Unknown Rx - History of Present Illness -Gen Adult Nature of Presenting Problems: Patient is a 66 year old female who presents in the ED with complaints of weakness and confusion. She states she has had generalized weakness today, stating she "couldn't get out of her bed earlier." She also states she has had confusion over the last two to three hours. 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 She denies chest pain, dyspnea, palpitations, and any other symptoms. Location of Pain/Injury: reports: none Pain Radiation: reports: no radiation Quality of Pain: reports: none Severity: reports: mild, moderate Onset/Duration: reports: abrupt, this morning Timing: reports: still present Context/Activities at Onset: reports: none Modifying Factors: improves with: nothing Associated Symptoms: reports: weakness, other (confusion) Similar Symptoms Previously?: No Recently seen or treated by another doctor?: No Review of Systems - Adult - REVIEW OF SYSTEMS - ADULT Constitutional: reports: see HPI, other (weakness) Eyes: reports: no symptoms reported Ears, Nose, Mouth & Throat: reports: no symptoms reported Cardiovascular: reports: no symptoms reported. denies: chest pain, palpitations Respiratory: reports: no symptoms reported. denies: shortness of breath Gastrointestinal: reports: no symptoms reported Genitourinary: reports: no symptoms reported Musculoskeletal: reports: no symptoms reported Integumentary: reports: no symptoms reported Neurological: reports: see HPI, other (confusion) Psychiatric: reports: no symptoms reported Endocrine: reports: no symptoms reported Hematologic/Lymphatic: reports: no symptoms reported Allergic/Immunologic: reports: no symptoms reported All Other Systems: Reviewed and Negative Past History - Adult - PAST MEDICAL HISTORY-ADULT Review of Records: reports: Old Records Reviewed, Nursing Assessment Review, Medications Reviewed Major Childhood Illnesses: reports: denies history Cardiovascular: reports: A-Fib, CHF, HTN Respiratory: reports: denies history Gastrointestinal: reports: denies history Obstetrical/Gynecological: reports: other (post menopausal) Genitourinary: reports: denies history Musculoskeletal: reports: arthritis Neurological: reports: denies history Endocrine/Immune: reports: Lymphoma (diagnosed 2006/ presently undergoing stem cell transplant) Other Conditions: reports: denies history - PRIOR SURGERIES/PROCEDURES Surgical/Procedure History: reports: BTL, orthopedic (extremity) (left hip replacement and kenna in left leg), other (right wrist surgery; port placement; stem cell placement) - PRIOR HOSPITALIZATIONS Prior Hospitalizations: reports: other (at [facility] during the week for stem cell thearpy) - IMMUNIZATION STATUS Childhood Immunizations: UTD Flu Vaccine: UTD - FAMILY HISTORY Family History: reviewed, not pertinent - SOCIAL HISTORY Smoking: non-smoker, quit greater than 1 year Substance Use: none/never Alcohol Use Frequency: never Living Situation: family Physical Exam-General - PHYSICAL EXAM-ADULT Initial Vital Signs Reviewed: Yes - CONSTITUTIONAL General Appearance: alert, no apparent distress - EYES Eyes: PERRL/EOMI, pink conjunctivae - HEAD, EARS, NOSE, MOUTH & THROAT HENMT: normocephalic/atraumatic, moist mucous membranes - NECK Neck: full range of motion, supple - RESPIRATORY Respiratory: chest non-tender, lungs clear, normal breath sounds, no pleuratic chest pain, no respiratory distress, no accessory muscle use - CARDIOVASCULAR Cardiovascular: regular rate, rhythm, no edema, no gallop, no JVD, no murmur - GASTROINTESTINAL (ABDOMEN) Abdominal Exam: soft, no organomegaly, no pulsatile mass - LYMPHATIC Lymphatic: no adenopathy - MUSCULOSKELETAL Back Exam: normal inspection, no CVA tenderness, no vertebral tenderness Extremity: normal range of motion, non-tender, no pedal edema - SKIN Integumentary: normal color, normal turgor, warm/dry - NEUROLOGIC Neurologic: grossly normal, no motor/sensory deficits - PSYCHIATRIC Psych/Mental Status: normal mood/affect, oriented x 3 Progress - PLAN OF CARE/RESULTS Progress/Plan/Lab Results: Vital Signs - 8 hr 02/21/17 19:49 02/21/17 21:53 02/21/17 21:55 Temperature 99.4 F Pulse Rate 77 65 68 Respiratory Rate 20 24 23 Blood Pressure 120/84 105/72 105/72 O2 Sat by Pulse Oximetry 90 L 94 L 92 L Laboratory Results - last 24 hr 02/21/17 02/21/17 02/21/17 19:58 19:58 19:58 WBC 12.36 H RBC 3.36 L Hgb 12.4 Hct 35.3 L MCV 105.1 H MCH 36.9 H MCHC 35.1 RDW Std Deviation 15.6 H Plt Count 165 MPV 11.1 H Immature Gran % (Auto) 0.2 Neut % (Auto) 69.5 Lymph % (Auto) 21.7 [place] % (Auto) 8.0 Eos % (Auto) 0.2 Baso % (Auto) 0.4 Immature Gran # (Auto) 0.02 Neut # (Auto) 8.60 H Lymph # (Auto) 2.68 [place] # (Auto) 0.99 H Eos # (Auto) 0.02 Baso # (Auto) 0.05 Sodium 133 L Potassium 2.8 L Chloride 88 L Carbon Dioxide 31 Anion Gap 14 BUN 30 H Creatinine 1.0 H Estimated GFR/1.73 m2 56 BUN/Creatinine Ratio 30 Glucose 132 H Calculated Osmolality 274 Calcium 8.9 Phosphorus 2.9 Magnesium 1.4 L Total Bilirubin 2.80 H AST 54 H ALT 11 Alkaline Phosphatase 245 H Creatine Kinase 40 Troponin T [id number] Pept 7665 H Total Protein 8.9 H Albumin 3.3 L Globulin 5.6 Albumin/Globulin Ratio 0.6 Urine Source Urine Color Urine Turbidity Urine pH Ur Specific [place] Urine Protein Ur Glucose (Stick) Ur Ketones (Stick) Urine Blood Urine Nitrite Urine Bilirubin Urobilinogen Dipstick Urine Leukocytes Urine WBC (Auto) Urine RBC (Auto) U Epithel Cells (Auto) Urine Bacteria (Auto) 02/21/17 02/21/17 19:58 20:15 WBC RBC Hgb Hct MCV MCH MCHC RDW Std Deviation Plt Count MPV Immature Gran % (Auto) Neut % (Auto) Lymph % (Auto) [place] % (Auto) Eos % (Auto) Baso % (Auto) Immature Gran # (Auto) Neut # (Auto) Lymph # (Auto) [place] # (Auto) Eos # (Auto) Baso # (Auto) Sodium Potassium Chloride Carbon Dioxide Anion Gap BUN Creatinine Estimated GFR/1.73 m2 BUN/Creatinine Ratio Glucose Calculated Osmolality Calcium Phosphorus Magnesium Total Bilirubin AST ALT Alkaline Phosphatase Creatine Kinase Troponin T < 0.010 [id number] Pept Total Protein Albumin Globulin Albumin/Globulin Ratio Urine Source CATH Urine Color YELLOW Urine Turbidity CLEAR Urine pH 6.5 Ur Specific [place] 1.007 Urine Protein NEGATIVE Ur Glucose (Stick) NEGATIVE Ur Ketones (Stick) NEGATIVE Urine Blood MODERATE A Urine Nitrite NEGATIVE Urine Bilirubin NEGATIVE Urobilinogen Dipstick NORMAL Urine Leukocytes NEGATIVE Urine WBC (Auto) <10 Urine RBC (Auto) <10 U Epithel Cells (Auto) <10 Urine Bacteria (Auto) NEGATIVE Orders Category Date Time Status Wilks Cath Insertion ORDERED Care 02/21/17 20:[address] HEAD W/O CONTRAST [CT] Stat Exams 02/21/17 21:00 Completed cxr [CHEST-1 VIEW] [RAD] Stat Exams 02/21/17 21:53 Taken BNP [PRO B-NATRIURETIC PEPTIDE] Stat Lab 02/21/17 19:58 Completed CBC WITH DIFF [HEME] Stat Lab 02/21/17 19:58 Completed CK PROFILE [SP CHEM] Stat Lab 02/21/17 19:58 Completed COMPREHENSIVE METABOLIC PANEL [CHEM] Stat Lab 02/21/17 19:58 Completed MAGNESIUM [CHEM] Stat Lab 02/21/17 19:58 Completed PHOSPHORUS [CHEM] Stat Lab 02/21/17 19:58 Completed TROPONIN T Stat Lab 02/21/17 19:58 Completed UA NIMS W/REFLEX CULT [URINALYSIS] Stat Lab 02/21/17 20:15 Completed Furosemide [Lasix] Med 02/21/17 21:54 Discontinued 60 mg IV NOW ONE Magnesium Sulfate 2 gm/S.w.i. [Magnesium Sulfate 2 gm/S Med 02/21/17 21:54 Active .w.i] 2 gm in 50 ml IV NOW Potassium Chloride 20% Liquid Med 02/21/17 22:04 Discontinued 40 meq PO NOW ONE EKG [EKG] Stat Ther 02/21/17 19:44 Ordered Spoke with hospitalist and he has accepted the admission. Result Diagrams: 02/21/17 19:58 02/21/17 19:58 - REASSESSMENT Reassessment #1 Time Reassessed: 22:08 (Spoke with hospitalist and he has accepted the admission.) Departure - Departure Date of Disposition Decision: 02/21/17 Time of Disposition Decision: 22:12 DIAGNOSIS: CHF exacerbation Disposition: ADMITTED INPATIENT 09 Certified Medical Emergency: Emergent Condition: Stable Referrals and Follow-Ups: None,PCP [Primary Care Provider] - - Critical Care Note This patient required my direct & personal management of CC.: No Attestation - Physician/ LORENA Attestation Patient care was provided by Advanced Practice Provider:: No The physician spent face to face time with patient:: Yes Advanced Practice Provider documentation review:: Supervising physician onsite and consulted in the evaluation and care of this patient. The physician did have a face to face encounter with the patient. This chart was documented by the indicated scribe, (Saskia Ervin Scribe) and accurately reflects the services I performed and decisions made by me, Bertin Gomes DO, as attested by the provider's signature.
--- NOTE | 2017-02-21 22:25 | Diag Imaging Result Doc PS360 ---
EXAM: CHEST-1 VIEW HISTORY: CHF TECHNIQUE: Portable upright COMPARISON: 01/11/2017 FINDINGS: The lungs are well expanded. The heart is mildly prominent. The vessels are not distended. There are no infiltrates. No effusion identified. IMPRESSION: Mildly prominent heart, otherwise negative exam. Electronically signed by Conrad Lopez 02/21/2017 10:23 PM
[2017-02-21] MEDS ORDERED: ZOFRAN IV PRN (23:08)
[2017-02-21] MEDS ORDERED: TYLENOL PO PRN (23:08)
[2017-02-21] MEDS: LASIX IV SCH (23:08)
[2017-02-21] MEDS ORDERED: ZOFRAN IV ONE (23:41)
[2017-02-21 23:50] LABS: ALLEN TEST YES; BE 10.4 mmoll (-3.0-3.0); BLOOD TYPE ARTERIAL; DRAW SITE R RADIAL; METHB 0.9 % (0.0-1.5); MODALITY CANNULA; PCO2(98.6) 42 mmHg (35-45); PO2(98.6) 70 mmHg (60-100); SAMPLE BLOOD; SAO2 96.9 % (95.0-100.0); THB 12.9 g/dL (11.5-17.4); pH(98.6) 7.52 (7.35-7.45)
[2017-02-22] MEDS: POTASSIUM CHLORIDE 20 MEQ/SWI 20 MEQ/100 ML IVPB IV SCH ×4 (00:11→17:38)
[2017-02-22 07:10] LABS: HEMATOCRIT 33.7 % (37.0-47.0); HEMOGLOBIN 11.7 g/dL (12.0-16.0); MCH 36.8 PG (27-31); MCHC 34.7 g/dL (33-37); MPV 10.3 FL (7.4-10.4); RBC 3.18 XMIL (4.2-5.4)
[2017-02-22 07:22] LABS: CALCIUM 8.4 mg/dL (8.8-10.2); MAGNESIUM 1.7 mg/dL (1.5-2.7)
--- NOTE | 2017-02-22 07:29 | EKG Report ---
Test Performed on : 02/21/2017 7:37:11 PM Test Reason : reorderd Blood Pressure : / mmHG Vent. Rate : 071 BPM Atrial Rate : 100 BPM P-R Int : 000 ms QRS Dur : 092 ms QT Int : 432 ms P-R-T Axes : 000 001 181 degrees QTc Int : 469 ms Atrial fibrillation. with a competing junctional pacemaker. Low voltage QRS Incomplete right bundle branch block Cannot rule out Anterior infarct , age undetermined ST \T\ T wave abnormality, consider lateral ischemia Abnormal ECG When compared with ECG of 06-JAN-2017 15:18, Inverted T waves have replaced nonspecific T wave abnormality in Lateral leads Unconfirmed Result
--- NOTE | 2017-02-22 09:10 | EKG Report ---
Test Performed on : 02/22/2017 08:09:24 AM Test Reason : CHF Blood Pressure : / mmHG Vent. Rate : 065 BPM Atrial Rate : 098 BPM P-R Int : 000 ms QRS Dur : 096 ms QT Int : 488 ms P-R-T Axes : 000 -51 197 degrees QTc Int : 507 ms Atrial fibrillation. Left axis deviation Low voltage QRS Incomplete right bundle branch block T wave abnormality, consider anterolateral ischemia Prolonged QT Abnormal ECG When compared with ECG of 21-FEB-2017 19:37, Minimal criteria for Anterior infarct are no longer present Inverted T waves have replaced nonspecific T wave abnormality in Anterior leads Unconfirmed Result
[2017-02-22] MEDS: ELIQUIS PO SCH ×3 (09:30→21:11)
--- NOTE | 2017-02-22 09:54 | Diag Imaging Result Doc PS360 ---
US ABDOMEN-COMPLETE - 02/22/2017 INDICATION: elevated liver enzymes COMPARISON: 01/06/2017 FINDINGS: There are a couple of stable benign-appearing cysts of the liver. The gallbladder remains collapsed with nonspecific wall thickening. Common bile duct is normal measuring 4 mm. The masslike echogenicity at the right renal cortex is no longer visible. There is stable prominence of the right renal pelvis. The left kidney is grossly normal. Both renal sizes are normal. The pancreas and spleen are normal. Aorta, IVC, and main portal vein are patent. IMPRESSION: 1. Collapsed gallbladder with nonspecific wall thickening. 2. Mild dilation of the right renal pelvis, significance uncertain. No definite renal mass. Electronically signed by Stevan Martínez 02/22/2017 9:52 AM
--- NOTE | 2017-02-22 10:50 | HISTORY AND PHYSICAL ---
ARCHIVAL STUDIES PROFESSOR: Dr. Srivastava. DATE AND TIME OF HISTORY AND PHYSICAL: 02/21/17 3100. CHIEF COMPLAINT: Weakness and confusion. HISTORY OF PRESENT ILLNESS: Ms. Luong is a 66-year-old, female with a past medical history most notable for chronic congestive heart failure, chronic atrial fibrillation, and non- Hodgkin's lymphoma, status post stem cell transplant and chemotherapy. She was just recently admitted to the hospital back at the beginning of December. There was a discharge diagnosis of heart failure with predominantly right-sided symptoms. They did request that the patient follow up with her doctor at [facility] for a rule out of pulmonary hypertension. The patient reports that she has been to [facility] and did state that her doctor did evaluate her for this and reported that this was not the cause of her heart failure complications. The patient reports that over the past few days that she has had progressively worsening weakness. At this time, she is very weak and is unable to get out of bed. Her muscle strength was very weak upon examination. She has also had development of confusion since early yesterday. She also reports that they just recently had adjusted her Lasix dosage and have actually increased it. Upon evaluation in the ER, the patient was found to be hypokalemic with a potassium of 2.8. Her liver enzymes were elevated as well. She did have elevated proBNP of 7665. Her cardiac enzymes are negative at this time. Her EKG did show atrial fibrillation with an incomplete right bundle branch block and ST and T-wave abnormality, a rate of 71 with a QTc of 469. The patient was also slightly hypoxic upon arrival with a room air saturation of 90%. With oxygen, she is currently increased to 94% on 2 L nasal cannula. The patient does normally not require oxygen assistance. She does have some bilateral nonpitting edema in the lower extremities and also her abdomen does appear to be distended as well. She does have JVD noted upon exam. Also, she has fine bilateral crackles noted in the lung bases. CT of the head was negative for any acute intracranial abnormality. Her chest x-ray showed a mildly prominent heart, though was otherwise negative. At this time, we will admit the patient for CHF exacerbation. REVIEW OF SYSTEMS: A 12 point review of systems was conducted with the patient. All were negative except for pertinent positives as mentioned in the HPI. The patient does report some confusion, though she is alert and oriented to person, place, and time. She does have difficulty answering questions and does have to be prompted 2 to 3 times to answer a question and is having some confusion in recalling things that she is normally able to answer correctly. She does report dizziness as well but denies headache. She does report some blurry vision also. She denies any chest pain or shortness of breath but does report that she sits upright in a recliner to sleep, though has been doing this for a few months now. She denies any abdominal pain , nausea, vomiting, or diarrhea. She denies any pain or burning with urination. She also denies any pain, numbness, or tingling in extremities. She denies any fever, body aches, or chills. PAST MEDICAL HISTORY: 1. Non-Hodgkin's lymphoma, status post stem cell transplant and chemotherapy. 2. History of pericardial effusion with tamponade, status post pericardial window. 3. Chronic atrial fibrillation, currently on Eliquis therapy for anticoagulation and what appears to be digoxin and carvedilol for rate control. 4. COPD. 5. Gastroesophageal reflux disease. 6. Anxiety. 7. Depression. 8. Osteoarthritis. 9. Gout. PAST SURGICAL HISTORY: 1. Bilateral tubal ligation. 2. Right wrist surgery. 3. Left hip replacement. 4. Stem cell transplant. 5. Pericardial window. 6. Port placement and removal. 7. Partial hysterectomy. SOCIAL HISTORY: The patient is a former smoker. She quit smoking in 2013. She does report occasional wine use but denies any illicit drug use. She is . Lives in [facility]. FAMILY HISTORY: Positive for renal cell cancer in her brother and breast cancer in her sister. Coronary artery disease in both father and mother, as well as diabetes. HOME MEDICATIONS: At this time, the patient, due to her mentation, is unable to verify her current home medications. We have placed a request for her or family to bring her medication bottles or we can contact her pharmacy which is [facility] in [place]. ALLERGIES: Patient reports allergies to codeine. DIAGNOSTIC DATA/LABORATORY RESULTS: White blood cell count is 12.36, hemoglobin 12.4, hematocrit 35.3, platelet count is 165,000. Sodium 133, potassium 2.8, chloride 88, bicarb 31, BUN 30, creatinine 1, GFR 56, glucose 132, calcium 8.9, phosphorus 2.9, magnesium is 1.4. Total bilirubin is 2.8, AST 54, ALT 11, alkaline phosphatase is 245. CK 40, troponin is less than 0.01. ProBNP 7665. Arterial blood gases were obtained on nasal cannula at 2.5 with a pH of 7.52, pCO2 42, PO2 78, CO3 is 32.9, and O2 saturation of 96.9. A urinalysis was obtained via catheter. It was positive for moderate blood, though it was otherwise within normal limits. Chest x-ray showed a mildly prominent heart, though was otherwise negative. This is per radiology. Head CT without contrast showed no hemorrhage. A negative brain CT without contrast as per radiology. Pending diagnostic studies at this time are repeat cardiac enzymes, repeat EKG, echocardiogram, ultrasound of right upper quadrant, and CT of the thorax with contrast, and hepatic function. PHYSICAL EXAMINATION: VITAL SIGNS: Temperature 99.4 degrees, heart rate 68, respirations 20, blood pressure is 103/67, oxygen saturation is 94% on nasal cannula at 2 L. GENERAL: Ms. Luong is a pleasant, 66-year-old, female who is ill appearing upon examination. She does have a moderate amount of weakness noted as well as some confusion as well. Though she was alert and oriented to person, place, and time, she was unable to answer simple questions related to her past medical history, for which normally she is able to provide. HEENT: Head is atraumatic, normocephalic. Pupils are equal, round, reactive to light, were 3 mm bilaterally and brisk. Oral mucosa is moist. Oropharynx is clear. NECK: Supple. Trachea midline. No carotid bruits noted upon auscultation bilaterally. The patient does have JVD noted. CARDIOVASCULAR: The patient has S1 and S2 noted. No murmurs, gallops, or rubs appreciated at this time. She has a regular heart rate, though there is a slightly irregular rhythm. Her heart rate at this time is controlled and has been running in the low 60s. PULMONARY: Patient has symmetrical chest expansion bilaterally. Lung sounds are clear in bilateral upper herrera, though did have fine crackles noted in bilateral bases. She is in no acute respiratory distress. ABDOMEN: Soft. It does appear to be distended. The patient had a small area of tenderness upon palpation just left inferiorly to her umbilicus, though no rebound tenderness noted. Bowel sounds were present in all 4 quadrants, were slightly hypoactive. GENITOURINARY: Patient has a Wilks catheter in place at this time. EXTREMITIES: No cyanosis or clubbing noted. The patient does have nonpitting bilateral edema noted to her bilateral lower extremities. Pulse, motor, and sensory are intact in all extremities. Pedal pulses were 3+ bilaterally. Capillary refill was less than 3. INTEGUMENTARY: The patient's skin is pink, warm, dry, and intact. No lesions or sores noted. NEUROLOGICAL: Patient is alert and oriented to person, place, and time, though as previously mentioned, does have some confusion at times when answering questions. Had to be prompted more than once to answer questions and does have a change from what her normal baseline is. Cranial nerves 2-12 do appear to be grossly intact at this time, though the patient does have a fair amount of generalized weakness noted upon examination. ASSESSMENT AND PLAN: 1. Congestive heart failure exacerbation. For this, we will place the patient on 60 mg of Lasix intravenous every 12 hours. She did receive a dose of this in the emergency room as well. Her most recent echocardiogram in December 2016 showed an ejection fraction of 55%. Her chest x- ray tonight did show a mildly prominent heart, though her heart did appear to be slightly enlarged compared to the previous x-ray approximately one month prior. Given the patient's worsening symptoms of edema and weakness, and her x-ray findings, we did decide to go ahead and repeat an echocardiogram this morning to rule out pericardial effusion. We will continue to do serial cardiac enzymes, repeat an EKG in the morning. We will do daily weights, strict intake and output, and we have placed a cardiology consult with Dr. Srivastava and will await his evaluation and further recommendation. 2. Metabolic encephalopathy. This could be multifactorial, though the patient does have transaminitis. This could be secondary to hepatic encephalopathy. Also she was initially hypoxic upon arrival, though her ABGs did not show elevated CO2. We have placed an order for an ammonia level in the morning and we will await this and continue to follow. Her CT of the head was negative. At this time, we will continue to monitor closely with neurological checks. 3. Hypoxia. Upon arrival the patient had a room air saturation of 90%. She does not normally require any oxygen and is only maintaining oxygen saturation of 94% on nasal cannula at 2 L. Given this, we did go ahead and place an order for a CT of the thorax. We are awaiting those results at this time to rule out any further pulmonary involvement. 4. Hypokalemia. We have placed orders for potassium replacement and we will recheck this in the morning as well. We also did give her some magnesium also. 5. Transaminitis. This could likely be secondary to hepatic congestion secondary to her congestive heart failure, though her liver enzymes are slightly worse compared to her previous admission 1 month ago. We have placed an ammonia level as previously mentioned and are ordering a right upper quadrant ultrasound for further evaluation and we will continue to follow. 6. History of hypertension. At this time, the patient actually is experiencing some borderline hypotension. We have held her blood pressure medicines at this time. We will continue to monitor this closely, though we are also waiting for her home medications to be updated and verified to confirm her medications and dosages. 7. Chronic atrial fibrillation. Her rate is controlled at this time. We will continue her Eliquis and once her medications are updated, we will continue her medicines for rate control. 8. History of non-Hodgkin's lymphoma. This appears to be stable at this time. We will continue to follow. 9.Deep venous thrombosis prophylaxis at this time is currently being provided with her home anticoagulation medication of Eliquis. Further orders and recommendations pending hospital course, diagnostic studies , and physician evaluation. She will be placed in [facility] with telemetry and neurological checks every 4 hours for close monitoring. Critical care time with this patient was approximately 50 minutes. Dictated by PRICILLA Person for Manjit Sanchez MD cc: Manjit Sanchez MD [facility]
[2017-02-22] MEDS: LASIX IV SCH (10:51)
[2017-02-22 11:43] LABS: FREE T4 1.32 ng/dL (0.93-1.70)
--- NOTE | 2017-02-22 12:12 | Diag Imaging Result Doc PS360 ---
EXAM: CTA THORAX AND ABDOMEN HISTORY: dyspnea, rule out PE, infection, AMS TECHNIQUE: CT angiography of the chest and abdomen with 3-D MIPS and reduced radiation dose. COMMENT: There are no filling defects in the pulmonary arteries. The thoracic aorta is not distended and there is no evidence of dissection. There is extensive coronary calcification particularly in the left anterior descending artery. There is a pericardial effusion which measures 11 mm over the right atrium and a left pleural effusion. Compared to the previous noncontrast thoracic study of 01/07/2017 the left pleural effusion and pericardial effusion was present for previously. There was previously a right pleural effusion which is apparently resolved. There are fibrotic opacities present in the lung apices particularly the left. This has not changed since the previous study. There is apparent edema in the left axilla which is similar in appearance to the previous study. This may be due to lymphedema. Otherwise the appearance of the pulmonary parenchyma has not changed significantly. ABDOMEN: There are multiple cysts present in the liver which were also demonstrated on 10/16/2013. There are granulomata in the spleen. There is stranding in the perinephric space on both sides and matted lymphadenopathy in the retroperitoneum is present from the level of the celiac caudally to the bifurcation of the aorta. The focal masses which were demonstrated on 10/16/2013 particularly adjacent to the renal pedicle on the left have diminished since that time. There are atherosclerotic calcifications in the aorta but no significant aneurysm is present. The mesenteric vessels and renal arteries are patent. There is generalized subcutaneous edema thickly over the flanks and there is fluid in the paracolic gutters. This was not present previously. The regional skeleton appears to be intact. IMPRESSION: Retroperitoneal adenopathy which is likely related to the patient's known lymphoma. This is more extensive than it was visible on the previous study of 10/16/2013. No more recent studies are available for comparison. Generalized anasarca particularly in the flanks. Improved right pleural effusion. No evidence of pulmonary emboli or aneurysm. Electronically signed by Viktor Kitchen 02/22/2017 12:09 PM
[2017-02-22] MEDS ORDERED: PERCOCET-5 PO ONE (12:28)
[2017-02-22] MEDS ORDERED: MAGNESIUM SULFATE 2 GM/S.W.I. 2 GM/50 ML IVPB IV ONE (14:03)
--- NOTE | 2017-02-22 14:07 | CONSULTATION ---
DATE OF CONSULTATION: 02/22/2017 CHIEF COMPLAINT: Swelling of the lower extremities, chronic severe fatigue, weakness. HISTORY OF PRESENT ILLNESS: Ms. Luong is a pleasant 66-year-old female who is known to Dr. Naseem Srivastava, and I have seen her myself in the past. She is brought to the emergency room by her family because for the past few days, she has been noticing increasing swelling of the legs, increasing fatigue, no energy at all, she can barely get out of bed by herself. She feels severely exhausted. She does have chronic pain which is more generalized. No specific chest pain. The patient denies having fever. No cough. Upon presentation to the emergency room, they have done a chest x-ray that shows mildly prominent heart, otherwise negative exam. They have done also a CT scan of the head which showed no major abnormalities. They did this morning a chest CT that indicates evidence of pericardial effusion which measures 11 mm over the right atrium and a left pleural effusion. Compared to previous noncontrast thoracic study of 01/07, the left pleural effusion and pericardial effusion were present. The right pleural effusion has resolved. They have not noticed any pulmonary thrombus. They have also noticed retroperitoneal adenopathy which may relate to underlying lymphoma, more extensive than previous study from 10/16/2013. They have done EKG on her that showed atrial fibrillation, a right bundle branch block pattern, left axis and low voltage in multiple leads. They have done a 2D echocardiogram that indicates the presence of an enlarged right ventricle with evidence of normal left ventricular systolic function and no significant valvular abnormality. No significant pericardial effusion was noted on that particular echocardiogram which was of limited quality. The patient's blood work indicates, at the time of presentation, sodium 133, potassium 2.8, BUN of 30, creatinine 1.0. Her magnesium is 1.4, bilirubin 2.8, AST is 54, alkaline phosphatase 245. C- reactive protein is 84.80. ProBNP is 7665. Albumin is 3.3. TSH is 2.5. Free T4 is normal. Her sedimentation rate is 53. D-dimer is 2.5. White count was 12,360 initially. PAST MEDICAL HISTORY: Positive for lymphoma treated by means of chemotherapy for a number of years, and subsequently she received also radiation therapy under the services of Dr. Aj. Details of the extent of radiation is unknown to me, although the patient claims that she received a total of 28 treatments, or it went on for 28 days. The patient received a stem cell transplantation. She has suffered paroxysmal atrial fibrillation in the past coinciding with a pericardial effusion that was drained last year in 12/2015. Initially the paroxysmal atrial fibrillation was treated in [place] by cardioversion. She has remained in atrial fibrillation since then. She has had gastric reflux. She has history of chronic hip pain. PAST SURGICAL HISTORY: Positive for left hip replacement. She has had wrist surgery, hysterectomy and a tubal ligation. SOCIAL HISTORY: She is . She has 2 children. was in the room. Quit smoking in 2013. FAMILY HISTORY: Father and sister had coronary artery disease. ALLERGIES: Codeine. HOME MEDICATIONS: At the time of her current admission were listed as spironolactone 1 tablet daily, potassium chloride 1 tablet daily, metolazone 1 tablet daily, colchicine 1 tablet twice a day, allopurinol 1 tablet daily, Eliquis 1 tablet twice a day, oxycodone/ acetaminophen every 8 hours, methocarbamol 3 times a day, digoxin 1 tablet daily, paroxetine 20 mg daily, metoprolol 1 tablet daily, furosemide 1 tablet twice a day, omeprazole 40 twice a day, Valtrex 500 twice a day, prednisone 5 mg daily. ADDITIONAL HISTORY: This patient has received a heart catheterization recently in 12/[address] Burroughs and Dr. Srivastava. This study showed that she had normal coronary arteries with normal left ventricular function; however, her pulmonary pressure was elevated. The patient was sent to [facility] for opinion. They thought that the main delivery route driver of her pulmonary hypertension is left heart failure which needs to be treated. REVIEW OF SYSTEMS: Other than what I have described in her HPI is negative. She does have chronic fatigue, progressive swelling, swelling of the abdomen, etc. PHYSICAL EXAMINATION: Today blood pressure is 98/64, pulse 92, temperature 98.6 , respirations 18. Weight is 200 pounds. She is awake, alert and oriented, no distress. HEENT is unremarkable. Her neck veins are distended all the way up to the angle of the jaw. Chest shows diminished breath sounds at the bases. No dullness to percussion. Heart sounds are irregularly irregular with a systolic murmur 2/6 in intensity. Her abdomen is somewhat distended, firm. No hepatomegaly is noted. Extremities showed 2+ brawny edema diffusely. Pulses are palpable, equal. No definite varicose veins noted. Neurologic: She follows commands. Moves all 4 extremities. She has no obvious deficit. DIAGNOSTIC DATA: Echocardiogram done today has been reviewed, poor quality. Ejection fraction of left ventricle normal. Right ventricle is significantly enlarged. Right atrium is also significantly enlarged. IMPRESSION: 1. The patient presented with increasing swelling of the lower extremities, swelling of the abdomen, multiple electrolyte abnormalities related to the use of diuretics. Given normal systolic function of left ventricle in all recent imaging studies, the only reasonable explanation would be a case of severe diastolic dysfunction. 2. The patient has what appears to be a case of chronic effusive-constrictive pericarditis. At this time there is inflammation evident, sedimentation rate is up, C- reactive protein is up. This may very well explain the cardiac imaging findings and her clinical presentation. 3. History of gout, hyperuricemia on previous admission. 4. History of lymphoma, non-Hodgkin's, status post stem cell transplant. 5. Multiple electrolyte abnormalities as outlined including hypomagnesemia, hypokalemia and hyponatremia. RECOMMENDATIONS: At this point in time, I would suggest to consider the possibility that this patient may actually have primarily a constrictive pericarditis type of picture and act accordingly by obtaining expert consultation from a cardiovascular place where they can provide this type of assessment. My personal bias would be to refer her to Dr. Carlos Alvarez at [facility] for his specific opinion,anticipating that they may suggest pericardiectomy. On my part, I would strongly recommend to do a right and left heart catheterization with simultaneous measurement of pressures on both ventricles to confirm this suspicion. Further advice will be forthcoming. Thank you again for the opportunity to participate in this patient's evaluation. Best regards. cc: Marty Segundo MD [facility]ENTER[facility]ig[facility]
[2017-02-22] MEDS: NS 1,000 ML IV SCH (14:27)
--- NOTE | 2017-02-22 15:17 | PROGRESS NOTE ---
DATE: 02/22/2017 SUBJECTIVE: This is a 66-year-old, past medical history most notable for congestive heart failure, chronic atrial fibrillation, non-Hodgkin's lymphoma, status post stem-cell transplant with chemotherapy, recently admitted to the hospital the beginning of December and discharged with a diagnosis of heart failure, predominantly right-sided symptoms. Dr. Segundo I believe was involved. He requested that Dr. Garcia rule him out for pulmonary hypertension. He states that the doctor did evaluate and reported this was not the cause of her heart failure. She came in, stating the last couple of days progressive worsening weakness, very weak, could not get out of bed. Muscle strength was weak and she had some confusion. Upon evaluation in the emergency room, patient found to have hypokalemia, potassium 2.8 and hypomagnesemia I believe. EKG showed atrial fibrillation, incomplete right bundle branch block, ST and T-wave abnormality. Rate is 70. QTc was 469. Patient also was hypoxic with O2 saturations 90%. This is on 2 L nasal cannula. She did have JVD. CT of the head was negative. So review again of past medical: 1. Non-Hodgkin's lymphoma, status post stem cell transplant and chemotherapy. 2. History of pericardial effusion, tamponade, status post pericardial window. 3. Chronic atrial fibrillation, currently on Eliquis for anticoagulation. History on digoxin and Coreg as well. 4. COPD. 5. Gastroesophageal reflux. 6. Anxiety. 7. Depression. 8. Osteoarthritis. 9. Gout. SURGICAL HISTORY: Reviewed. Bilateral tubal ligation. Right wrist surgery. Right hip replacement. Stem cell transplant. Pericardial window. Port placement removal. Partial hysterectomy. The patient also complained of some confusion. Her sister was at the bedside. She had a CT of the abdomen and chest and showed retroperitoneal adenopathy likely related to patient's known lymphoma. No more extensive than was seen in 10/16/2013. No more recent studies. Generalized anasarca of the thorax, retroperitoneal adenopathy. There is extensive coronary calcification, particularly in the left anterior descending artery. Pericardial effusion measured 11 mm in the right atrium. Left pleural effusion. Patient breathing comfortably. PHYSICAL EXAMINATION: General: Seen in the emergency room. Vital signs: Temperature 98.6 degrees, pulse 72, respirations 16, blood pressure 82/53. Lungs: Clear anterolateral. Neck: She had distended neck veins appreciated. CVP was approximately 10 cm from angle of Nabil. Lungs: Clear. Cardiovascular: Regular rhythm and rate without murmur or S3. Abdomen: Soft. Skin: Warm and dry. LABORATORY: CBC and electrolytes reviewed. Hypokalemia. They have supplemented some. Magnesium was 1.7. ASSESSMENT AND PLAN: Right-sided heart failure with distended neck veins. There is some pedal edema. I think Dr. Segundo was planning on doing right and left heart catheterization studies. At this point, we need to give her some volume back. We are going to hold her diuretics and see if we can improve renal function. We will supplement potassium and magnesium and plan to check electrolytes and chest x-ray again in the morning. I will give her normal saline at 85 mL an hour. Note that her chemistries, potassium was 1. I will put her on some Mag-Ox. When she came in, her potassium was 2.8 and magnesium was 1.4, so I will give her another 2 g of magnesium. I gave her another 40 mEq of potassium and put her on p.o. potassium and magnesium and we will start her with normal saline, run at 85 mL an hour. cc: Price Bhat MD
[2017-02-22] MEDS: MAG-OX PO SCH ×2 (20:45→21:11)
--- NOTE | 2017-02-22 22:36 | ECHO REPORT ---
ORDER DATE: 02/21/2017 SUMMARY: 1. Limited study performed to evaluate for possible pericardial effusion. Images are technically difficult and intravenous echo contrast agent Definity was utilized to enhance endocardial definition. 2. Mild aortic valve sclerosis demonstrated with adequate aortic valve opening evident. Mitral and tricuspid valves are without gross structural abnormality while pulmonic valve is not well demonstrated. The aortic root is grossly normal in size. 3. Normal left ventricular dimensions suggested. Estimated left ejection fraction appears to be at least 60%. Septal motion is abnormal in that septum flattens during diastole rendering a D shape to the left ventricle cross section during diastole. Right ventricular volume overload suggested. No other wall motion abnormalities evident. Left atrium is grossly normal in size. Right atrium appears enlarged. The right ventricle is moderate to severely enlarged with moderately reduced right ventricular systolic function. 4. No pericardial effusion evident. 5. Appearance of inferior vena cava suggests elevated central venous pressure. CONCLUSIONS: 1. Limited study technically difficult. 2. Mild aortic valve sclerosis. 3. Normal left ventricular ejection fraction. 4. Abnormal septal motion as described suggesting right ventricular volume overload. 5. Right atrial enlargement. 6. Moderate to severe right ventricular enlargement with moderately depressed right ventricular systolic function. 7. Elevated central venous pressure suggested. cc: MD Manjit Chapin MD
[2017-02-23] MEDS: NS 1,000 ML IV SCH ×2 (03:47→17:40)
[2017-02-23 05:37] LABS: ALBUMIN 2.9 g/dL (3.5-5.0); CALCIUM 8.3 mg/dL (8.8-10.2); DIRECT BILIRUBIN 1.1 mg/dL (0.00-0.20); MAGNESIUM 1.8 mg/dL (1.5-2.7); POTASSIUM 3.1 mmol/L (3.5-5.1); TOTAL BILIRUBIN 2.01 mg/dL (0.20-1.00); TOTAL PROTEIN 7.6 g/dL (6.3-8.3)
--- NOTE | 2017-02-23 07:25 | EKG Report ---
Test Performed on : 02/23/2017 06:38:49 AM Test Reason : dyspnea Blood Pressure : / mmHG Vent. Rate : 067 BPM Atrial Rate : 045 BPM P-R Int : 000 ms QRS Dur : 092 ms QT Int : 438 ms P-R-T Axes : 000 240 216 degrees QTc Int : 462 ms Atrial fibrillation. with a competing junctional pacemaker. Indeterminate axis Incomplete right bundle branch block Possible Right ventricular hypertrophy Nonspecific ST and T wave abnormality Abnormal ECG When compared with ECG of 22-FEB-2017 08:09, No significant change was found Confirmed by Jaden Shankar MD ([id number]) on 02/24/2017 8:13:44 PM
[2017-02-23] MEDS: MAG-OX PO SCH ×2 (08:55→20:02)
[2017-02-23] MEDS: PERCOCET-5 PO PRN ×2 (08:56→20:03)
[2017-02-23] MEDS: ELIQUIS PO SCH ×3 (08:59→20:03)
--- NOTE | 2017-02-23 09:42 | PROGRESS NOTE ---
DATE: 02/23/2017 SUBJECTIVE: Ms. Luong presented to the hospital. I believe the main complaint was shortness of breath. This was yesterday. To review, this is a 66-year-old with a past medical history with chronic congestive heart failure, chronic atrial fibrillation, non-Hodgkin's lymphoma, status post stem cell transplant and chemotherapy. Recently admitted to the hospital back in December. Discharged with diagnosis of heart failure, predominantly right-sided symptoms. The patient was to follow up with a doctor at [facility] to rule out pulmonary hypertension. Reports that she had been to [facility] and was told that she did not have pulmonary hypertension. Over the past couple days, progressively worsening shortness of breath and dyspnea. Dr. Segundo knows her. The question is whether it is pulmonary hypertension or is pericardial restriction. I think the plans are to try and do a study, right and left heart catheterization study. She feels better today. She is breathing comfortably. PHYSICAL EXAMINATION: Vital Signs: Temperature 98.4 degrees, pulse 65, respirations 16, blood pressure 106/71. CVP was down, less than 6 cm. Neck: No distended neck veins this morning. Lungs: Are clear. Cardiovascular Examination: Regular rhythm and rate without murmur or S3. Abdomen: Soft. Skin: Is warm and dry. Is and Os: Urine output 2700 mL, which is good. LABORATORY DATA: Review of the labs from the , yesterday, is stable. Hematocrit is stable at 33. Electrolytes looked good. Potassium was a little low. I think we supplemented. Magnesium was 1.8. Creatinine 1. ASSESSMENT AND PLAN: 1. I think they plan on repeating an echocardiogram. Patient presented with increased swelling of the lower extremities, swelling of the abdomen, multiple electrolyte abnormalities. Dr. Segundo has evaluated and felt this was secondary to the diuretics. She has normal systolic left ventricular function on recent imaging studies and possible diastolic dysfunction. 2. 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 There is inflammation evident. Sedimentation rate and C. reactive protein are up and so we will need cardiac imaging to see the extent of the restriction. I want to hydrate her before we do that. 3. History of gout and hyperuricemia. 4. History of lymphoma, non-Hodgkin's, status post stem cell transplant. 5. She presented with electrolyte abnormalities which appear to be doing better. We will supplement some more potassium. We will continue her normal saline at 75 mL an hour. Discussed with cardiology. I did put her back on her Percocet as she has complained of pain. 6. She is on Eliquis 2.5 mg twice a day, magnesium oxide - I started 800 mg twice a day, and we will put her on potassium by mouth to take every day as well. cc: Price Bhat MD
[2017-02-23] MEDS: KLOR-CON PO SCH ×2 (11:26→20:02)
[2017-02-24 05:20] LABS: CALCIUM 8.3 mg/dL (8.8-10.2); MAGNESIUM 1.9 mg/dL (1.5-2.7); POTASSIUM 3.5 mmol/L (3.5-5.1)
[2017-02-24] MEDS: NS 1,000 ML IV SCH ×2 (05:44→18:53)
--- NOTE | 2017-02-24 06:37 | EKG Report ---
Test Performed on : 02/24/2017 06:13:52 AM Test Reason : dyspnea Blood Pressure : / mmHG Vent. Rate : 075 BPM Atrial Rate : 065 BPM P-R Int : 000 ms QRS Dur : 088 ms QT Int : 366 ms P-R-T Axes : 000 068 -54 degrees QTc Int : 408 ms Atrial fibrillation. Indeterminate axis Low voltage QRS Nonspecific ST and T wave abnormality Abnormal ECG When compared with ECG of 23-FEB-2017 06:38, (Unconfirmed) QT has shortened Confirmed by Jaden Shankar MD ([id number]) on 02/24/2017 8:30:03 PM
[2017-02-24] MEDS: KLOR-CON PO SCH ×2 (09:05→20:38)
[2017-02-24] MEDS: ELIQUIS PO SCH ×2 (09:05→20:38)
[2017-02-24] MEDS: MAG-OX PO SCH ×2 (09:05→20:38)
[2017-02-24] MEDS: PERCOCET-5 PO PRN ×2 (09:12→19:20)
--- NOTE | 2017-02-24 22:19 | PROGRESS NOTE ---
DATE: 02/24/2017 SUBJECTIVE: Ms. Luong is feeling much better. Breathing comfortably and a lot stronger. No chest pain. Appetite is good. She has been eating. PHYSICAL EXAMINATION: Vital Signs: Temperature 98.5 degrees, pulse 80, respirations 20, blood pressure 117/78. CVP less than 6 cm. Lungs: Clear in all lung herrera. Cardiovascular: Regular rate without murmur or S3. Abdomen: Soft. Skin: Warm and dry. Output: Urine output 1700 mL. ASSESSMENT/PLAN: 1. She has increased swelling of lower extremities and had swelling of the abdomen. Multiple electrolyte abnormalities. We thought this was related to the use of diuretics. She has a normal systolic function. Left ventricle on recent image studies showed normal left ventricular function and she could have a case of severe diastolic dysfunction. 2. The patient has what appears to be a case of chronic effusive constrictive pericarditis and there is inflammation evident. Sedimentation rate is up. C-reactive protein is up. So I would like to get imaging studies to look at the right and left ventricle and see if there is significant pericardial restriction. 3. History of gout. Hyperuricemia. 4. History of lymphoma, non-Hodgkin's, status post stem-cell transplant. 5. Multiple electrolyte abnormalities, which have been resolved. She has had some diuresis and appears to be doing much better. Continue to give her some hydration. Her laboratory, white count is down, hematocrit is stable. Electrolytes look good. Creatinine 1. We will check uric acid level again. Thyroid levels look good. cc: Price Bhat MD
--- NOTE | 2017-02-25 06:44 | EKG Report ---
Test Performed on : 02/25/2017 06:11:10 AM Test Reason : dyspnea Blood Pressure : / mmHG Vent. Rate : 086 BPM Atrial Rate : 094 BPM P-R Int : 000 ms QRS Dur : 082 ms QT Int : 338 ms P-R-T Axes : 000 084 091 degrees QTc Int : 404 ms Atrial fibrillation. with a competing junctional pacemaker. Low voltage QRS Cannot rule out Anterior infarct (cited on or before 25-FEB-2017) Abnormal ECG When compared with ECG of February 24, 2017- No significant change was found Confirmed by Jaden Shankar MD ([id number]) on 02/27/2017 1:01:04 PM
--- NOTE | 2017-02-25 07:21 | PROGRESS NOTE ---
DATE: 02/25/2017 SUBJECTIVE: Ms. Luong has had a good night, breathing comfortably. She feels good. OBJECTIVE: Vital signs: Temp 98.1 degrees, pulse 94, respirations 18, blood pressure 119/67. Eyes: Pupils are equal, round. Lungs: Clear in all lung herrera. Cardiovascular: Regular rate without murmur or S3. Abdomen: Soft. Skin: Warm and dry. : Urine output 2200 mL. LAB: From the 25th reviewed. Hematocrit 33. Labs from yesterday: Electrolytes - Creatinine 1.0, sodium 134, potassium 3.5, chloride 93, BUN 26, creatinine 1.0. ASSESSMENT AND PLAN: 1. Swelling of lower extremities and swelling abdomen. The swelling has gone down. She feels much better, and breathing is better. Creatinine 1.0. 2. Question of whether she has constrictive pericardial process. Discussed with Cardiology. She appears to have a reactive process, and so we will continue current medications. 3. History of gout and hyperuricemia. 4. History lymphoma, non-Hodgkin's, status post stem-cell placement. 5. Electrolyte abnormalities have been resolved. Continue normal saline at 75 mL an hour. He is on Eliquis 2.5 mg b.i.d. We will check electrolytes again in the morning including magnesium, calcium, phosphate, and uric acid. cc: Price Bhat MD
[2017-02-25] MEDS: PERCOCET-5 PO PRN ×2 (08:39→19:16)
[2017-02-25] MEDS: KLOR-CON PO SCH ×2 (08:40→21:32)
[2017-02-25] MEDS: MAG-OX PO SCH ×2 (08:41→21:33)
[2017-02-25] MEDS: NS 1,000 ML IV SCH ×2 (10:08→21:34)
--- NOTE | 2017-02-25 12:46 | PROGRESS NOTE ---
DATE: 02/25/2017 SUBJECTIVE: This is a 66-year-old female, a patient who presented with increasing swelling, shortness of breath. Ms. Luong still feels somewhat uncomfortable. Still swollen. Her major complaint is some discomfort in the legs. OBJECTIVE: Vital Signs: Blood pressure 110/67, temperature 98.3, pulse 78, respirations 22. General: She is awake, alert, and oriented. Neck: The neck veins show prominent jugular venous distention all the way to the angle of the neck with I believe Kussmaul sign. Chest: Shows diffusely diminished breath sounds. Heart: Heart sounds are irregularly irregular. I do not hear any gallop or murmur. Abdomen: Her abdomen is slightly tender and distended. Extremities: The extremities show some diffuse redness of the legs. Pulses are good. BLOOD WORK: Sodium is 134. Potassium 3.5. BUN 26. Creatinine 1.0. IMPRESSION: 1. A patient who presented with increasing edema and prominent jugular veins. The CT scan of the chest showed a rim of fluid around the heart. Left ventricular end- diastolic pressure (LVEDP) noted on previous heart catheterization, elevated at 23 mmHg. 2. History of non-Hodgkin's lymphoma, status post stem cell transplantation from a donor, a brother. 3. Hyperuricemia. Previous gout. 4. Chronic atrial fibrillation. RECOMMENDATIONS: At this point in time I would suggest to proceed with right and left heart catheterization on her to document constrictive physiology which is what I suspect she has. Once we confirm that finding on hemodynamic tracings I will make a referral to Dr. Carlos Alvarez [facility], who I believe can handle this case that will probably require extensive pericardiectomy. Medically she is going to be difficult to deal with because of low cardiac output state. She might require high-doses of steroids, colchicine for an undetermined amount of time. I am getting worried about the fact that her liver function tests were abnormal indicating significant hepatic congestion which we may not be able to optimize just medically. I explained to her the benefits, risks and complications of the procedure. I told her that I am not going to use IV contrast dye for this procedure because we already have the coronary arteriography part of it done. The patient is in agreement. We will proceed tomorrow morning, 02/26/2017. cc: Marty Segundo MD MTDD
[2017-02-26 06:50] LABS: AGAP 9; BUN 18 mg/dL (8-22); CALCIUM 8.7 mg/dL (8.8-10.2); CHLORIDE 97 mmol/L (98-107); COSMO 269; MAGNESIUM 2.2 mg/dL (1.5-2.7); POTASSIUM 4.7 mmol/L (3.5-5.1); SODIUM 134 mmol/L (136-145); TCO2 28 mmol/L (25-35); URIC ACID 5.8 mg/dL (2.4-5.7)
[2017-02-26] MEDS ORDERED: HEPARIN 1000 UNITS/NS 2,000 UNIT/1,000 ML IV.SOLN ONE (07:18)
[2017-02-26] MEDS ORDERED: NS 100 ML ONE (07:18)
[2017-02-26] MEDS ORDERED: DEMEROL ONE (07:19)
[2017-02-26] MEDS ORDERED: VERSED ONE (07:19)
[2017-02-26] MEDS ORDERED: HEPARIN 1000 UNITS/NS 1,000 UNIT/500 ML IV.SOLN ONE (07:27)
[2017-02-26 08:09] LABS: URINE SOURCE CATH
--- NOTE | 2017-02-26 08:14 | PROGRESS NOTE ---
DATE: 02/26/2017 SUBJECTIVE: Ms. Luong had an uneventful night. She is scheduled for a heart catheterization this morning. She has had dark urine, blood in the urine. The nurses describe some ulcers in the perennial area, and we are going to try some nystatin cream. We will send the urine for UA. PHYSICAL EXAMINATION: Vital Signs: Temperature 97.7 degrees, pulse 78, respirations 18, blood pressure 125/76. HEENT: Pupils are equal and round. Lungs: Clear in all lung herrera. Cardiovascular: Regular rhythm and rate without murmur or S3. Abdomen: Soft. Skin: Warm and dry. Neck: Neck veins are less distended. Urine output 2600. LABORATORY DATA: Reviewed. CBC from 02/22/2017: Hematocrit stable. Electrolytes this morning: Sodium 134, potassium 4.7, chloride 97, BUN 18, creatinine 0.7. ASSESSMENT AND PLAN: 1. Going for a heart catheterization today to look and see if she has restrictive pericarditis. Her volume status and electrolytes I think are optimal. 2. Non-Hodgkin's lymphoma, status post stem cell transplant. She is followed by Oncology. 3. History of hyperuricemia, previous gout. We did check uric acid; it was 5.8. She has gross hematuria, and will send the urine for urinalysis. Will give her some topical treatment for ulcerations in her vaginal area, and now normal saline at 75 mL an hour, and nystatin powder was ordered. cc: Price Bhat MD
[2017-02-26 08:28] LABS: BILIRUBIN URINE SMALL (NEGATIVE); BLOOD URINE LARGE (NEGATIVE); CLARITY CLEAR (CLEAR); COLOR YELLOW; GLUCOSE URINE NEGATIVE (NEGATIVE); LEUKOCYTES URINE MODERATE (NEGATIVE); NITRITE URINE POSITIVE (NEGATIVE); PROTEIN URINE 100 mg/dL (NEGATIVE); URINE CULTURE NEEDED? YES
[2017-02-26 08:29] LABS: URINE RBC TNTC /HPF (<10)
[2017-02-26] MEDS: VALTREX PO SCH ×2 (10:09→20:34)
[2017-02-26] MEDS: ROCEPHIN 1 GM in NS 50 ML IV SCH (10:10)
[2017-02-26] MEDS: MAG-OX PO SCH ×2 (10:11→20:34)
[2017-02-26] MEDS: KLOR-CON PO SCH ×2 (10:11→20:34)
[2017-02-26] MEDS: PREDNISONE PO SCH (10:11)
[2017-02-26] MEDS: MYCOSTATIN POWDER TOP SCH ×2 (10:12→20:34)
[2017-02-26] MEDS: PERCOCET-5 PO PRN ×2 (10:38→22:12)
--- NOTE | 2017-02-26 13:59 | CARDIAC CATH REPORT ---
DATE: 02/26/2017 PROCEDURE: Right heart catheterization and a left heart catheterization with opacification of the right femoral artery with deployment of a 6-Kosovan Angio-Seal device. HISTORY: Mrs. 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 The patient presented several months ago with a pericardial effusion that required a pericardial window. Subsequently, she has developed progressive swelling of the legs, increasing dyspnea, persistent atrial fibrillation. A heart catheterization with coronary arteriography was carried out and obtained on January 08 that showed normal coronary arteries. However, the LVEDP was noted to be elevated. Pulmonary pressure was high, and consultation was made with [facility] regarding the possibility of pulmonary hypertension as the primary process. However, they looked at the case, and they felt that the patient had more of a case of congestive heart failure, possibly restrictive heart failure. The patient's systolic function by imaging studies is normal. Because of the difficulty in handling her case, and because a CT scan of the thorax just recently showed a rim of pericardial effusion around the right atrium and the left ventricle, we felt that constrictive effusive pericarditis could be a potential diagnosis on her, and we recommended a simultaneous determination of pressure between right and left ventricle to better assess for the possibility of constrictive/restrictive physiology. Benefits, risks, and complications were explained to the patient in detail. The understood and requested to proceed. DESCRIPTION OF PROCEDURE: The patient came into the cardiac refuse laborer in the fasting state. The right groin was prepped and draped in sterile fashion, anesthetized with lidocaine 1%. A 6-Kosovan sheath was inserted into the right femoral vein by following the modified Seldinger technique. A [place]-Herbert catheter was advanced to the right atrium first. Then a 6-Kosovan sheath was inserted into the right femoral artery by following the modified Seldinger technique. A pigtail catheter was advanced to the ascending aorta. The central aortic pressure was obtained. Then the aortic valve was negotiated and left ventricular pressure was obtained. Then we performed simultaneous determinations of pressure between the right atrium and left ventricle. Then the [place]-Herbert catheter was advanced into the right ventricle, and we performed simultaneous determinations of pressure again. We performed respiratory maneuvers with the patient taking deep inspirations and slow expirations. Then we advanced the [place]-Herbert catheter to the pulmonary artery. We performed simultaneous determinations of pressure between the wedge and the LV and also the pulmonary artery and LV. Several cardiac outputs by thermodilution were obtained. A sample of blood from the pulmonary artery was obtained as well as a sample of blood from the ascending aorta. That was for the determination of Dioni cardiac output. Then we repeated the simultaneous blood pressure measurements between the pulmonary artery and the left ventricle. Thereafter, we pulled back into the right ventricle again, and we repeated measurements between right ventricle and left ventricle with inspiratory maneuvers. We measured also simultaneous pressure between pulmonary artery and right atrium. Finally, we repeated the right atrial and left ventricular simultaneous pressure determination, and then we pulled back all the catheters. The [place]-Herbert was pulled back, and then the pigtail catheter was pulled back from LV to central aorta and removed. The sheaths were flushed. The right femoral artery was opacified, and then Angio-Seal device was deployed successfully. The patient tolerated the procedure well. The venous sheath was removed manually. Hemostasis was accomplished by hand compression. No immediate complications took place. SUMMARY OF THE HEMODYNAMIC FINDINGS: The right atrial pressure initially was c=29 v=30, and a mean of 25. The initial aortic pressure 103/58 with a mean of 84. The left ventricular pressure was 108/17. The right atrial pressure subsequently, the mean varied anywhere from 25 to 31 mmHg. The right ventricular pressure initially was 61/22. Subsequently, the systolic right ventricular pressure varied between 61 to 62, and the RVEDP varied anywhere from 22 to 28 mmHg. The pulmonary arterial pressure was 56/32 with a mean of 41, and the mean pulmonary pressure varied in multiple measurements to the highest number recorded of 43 mmHg. The highest recorded was 57/31 with a mean of 43. The left ventricular end-diastolic pressure fluctuated between 18 to the maximum that was recorded on the multiple measurements of 23 mmHg. The simultaneous pressures showed equalization between the right atrium and the left ventricle. There was some respiratory variation between the RVEDP and the LVEDP with no definite systolic discordance. For the most part, the right ventricular and left ventricular peak systolic pressures were concordant. There were an occasional couple of beats where there appeared to be some discordant measurements. The cardiac output measured by the Dioni method was 4.56 L/min. The pulmonary arterial saturation was 61%, aortic saturation of 94%. The average by thermodilution was 5.41 L. Five cardiac outputs were obtained. There was a suggestion of the "square root sign" noted on both RVEDP and LVEDP and also on the right atrial pressure tracings. SUMMARY: This hemodynamic study suggests that there is definite restrictive physiology. I could not prove the presence of discordant systolic beats between right ventricle and left ventricle in spite of several respiratory maneuvers performed, although there are times when the LVEDP really drops to as low as 15 mm with inspiration. We may have to obtain more data before sending this patient for possible pericardial stripping or pericardiectomy. Perhaps a cardiac MR might be helpful to absolutely exclude the possibility of significant myocardial scar. We will be discussing with consulting physicians from [facility]. cc: Marty Segundo MD
[2017-02-26] MEDS: MAALOX PLUS LIQUID PO PRN (20:35)
[2017-02-27] MEDS: KLOR-CON PO SCH ×2 (08:19→20:58)
[2017-02-27] MEDS: ROCEPHIN 1 GM in NS 50 ML IV SCH (08:19)
[2017-02-27] MEDS: MYCOSTATIN POWDER TOP SCH ×2 (08:19→20:58)
[2017-02-27] MEDS: PREDNISONE PO SCH (08:19)
[2017-02-27] MEDS: MAG-OX PO SCH ×2 (08:19→20:57)
[2017-02-27] MEDS: VALTREX PO SCH ×2 (08:19→20:58)
[2017-02-27] MEDS ORDERED: MILK OF MAGNESIA PO ONE (08:25)
[2017-02-27] MEDS ORDERED: DULCOLAX PR PRN (08:25)
--- NOTE | 2017-02-27 08:39 | PROGRESS NOTE ---
DATE: 02/27/2017 SUBJECTIVE: Ms. Luong's abdomen feels a little more distended. She is not complaining of any pain. She still has gross hematuria in the Wilks catheter. She is not complaining of any bladder spasm or discomfort in the pelvic area. OBJECTIVE: Vital Signs: Temperature 98.5 degrees, pulse 80, respirations 16, blood pressure 110/69. HEENT: Pupils are equal and round. Lungs: Clear in all lung herrera. Cardiovascular Examination: Regular rhythm and rate without murmur or S3. Abdomen: Soft. Skin: Is warm and dry. Is and Os: Urine output is 1700 mL. Lab: Reviewed from the . Chemistries this morning, sodium 134, potassium 4.7, chloride 97, BUN 18, creatinine 0.7, calcium 8.7, and phosphorus was 1.7. ASSESSMENT AND PLAN: 1. The patient presented with some edema, distended neck veins. CAT scan of the chest showed some fluid around the heart. Left ventricular end-diastolic pressure was 23 mmHg. A heart catheterization yesterday, right and left, suspect pericardial restriction. Second opinion being obtained from [facility]. We will try and optimize her volume pressure status at the present time. 2. She has gross hematuria. I think we are going to have to explore this. I am going to get Dr. Bradley Sweet to help. She may need cystoscopy. 3. Her abdomen is a little distended. I think we ought to give her a little milk of magnesia and Dulcolax suppository. 4. She is not eating very well. She says her appetite is okay. Her main complaint is she just feels very weak. Her electrolytes from yesterday looked good. We will repeat some more tomorrow. cc: Price Bhat MD
[2017-02-27] MEDS ORDERED: SODIUM PHOSPHATE 10 MMOL in NS 250 ML IV SCH (09:15)
[2017-02-27 09:27] LABS: BASO% 0.6 % (0.0-0.8); EOS# 0.33 X1000 (0.0-0.7); EOS% 3.9 % (0.0-10.0); HEMOGLOBIN 11.7 g/dL (12.0-16.0); IMM GRAN# 0.05 X1000 (0.0-0.04); IMM GRAN% 0.6 % (0.0-0.5); LYMPH# 2.35 X1000 (1.2-3.4); MANUAL DIFF NEEDED? NO; MCH 36.7 PG (27-31); MCHC 34.4 g/dL (33-37); MCV 106.6 FL (81-99); MONO# 0.83 X1000 (0.11-0.59); MONO% 9.9 % (1.7-9.3); MPV 10.5 FL (7.4-10.4); PLT 150 X1000 (130-400); RBC 3.19 XMIL (4.2-5.4)
--- NOTE | 2017-02-27 09:32 | PROGRESS NOTE ---
DATE: 02/27/2017 CHIEF COMPLAINT: Shortness of breath, swelling. SUBJECTIVE: Mrs. Luong is still having some issues lying flat. She is somewhat orthopneic. OBJECTIVE: She has no swelling of the groin. She had an uneventful night otherwise. No post cath complications. She still has blood in the urine. Vital signs: Blood pressure 135/79, temperature 97.7, pulse 92, respirations 20. General: She is awake, alert, oriented, in no distress. HEENT: Prominent jugular veins. Chest: Diminished breath sounds bilaterally. Cardiac: Heart sounds irregularly irregular, no gallop or murmur. Abdomen: Nontender. Extremities: Diffuse brawny edema. Neurological: She moves four extremities, follows commands. BLOOD WORK: Most recent blood work from February 26: Sodium 134, potassium 4.7, BUN 18, creatinine 0.7. Her magnesium was 2.2., phosphorus 1.7. IMPRESSION: 1. Patient with restrictive heart failure. The etiology of this could be a mixed picture of myocardial fibrosis and pericardial fibrosis following previous radiation therapy and chemotherapy for lymphoma. The alternative is that it could just be simply bands of constrictions haphazardly distributed around the heart. The patient may benefit from pericardial stripping. It is noteworthy to mention that on 01/28/2016 she presented with pericardial tamponade, and she underwent pericardial window where they removed at that time 1100 mL of pericardial fluid, and the histology revealed chronic and acute inflammation, I believe. 2. Chronic atrial fibrillation. 3. History of lymphoma. 4. h/o hyperuricemia/gout. RECOMMENDATION: At this point in time, I am going to try to slow down her heart rate with low- dose diltiazem and digoxin. I am going to add colchicine, the latter to cover the possibility of chronic pericarditis. We will have to monitor her CBC. We will send all the information to [facility], Dr. Carlos Morse and Dr. Carlos Alvarez, consulting doctors, for a second opinion. Hopefully, we will get them to see the patient soon, and we can move on with some definitive therapy for her current problems. . Will follow her along. cc: Marty Segundo MD [facility] CENTERLigia
[2017-02-27 09:35] LABS: INR 1.11; PROTIME 11.7 Seconds (9.2-11.7); PTT 33.7 Seconds (22.0-36.0)
[2017-02-27 09:36] LABS: AGAP 9; ALBUMIN 3.2 g/dL (3.5-5.0); ALKALINE PHOSPHATASE 264 U/L (32-104); BUN 16 mg/dL (8-22); CALCIUM 8.7 mg/dL (8.8-10.2); CHLORIDE 98 mmol/L (98-107); COSMO 267; GOT 61 U/L (10-30); GPT 12 U/L (10-36); POTASSIUM 4.9 mmol/L (3.5-5.1); SODIUM 132 mmol/L (136-145); TCO2 25 mmol/L (25-35); TOTAL BILIRUBIN 2.09 mg/dL (0.20-1.00)
[2017-02-27] MEDS: ALDACTONE PO SCH ×2 (10:30→20:58)
[2017-02-27] MEDS: CARDIZEM PO SCH ×3 (10:30→20:58)
[2017-02-27] MEDS: COLCRYS PO SCH ×2 (10:30→20:58)
[2017-02-27] MEDS: SODIUM PHOSPHATE 10 MMOL in NS 250 ML IV SCH ×4 (11:18→21:56)
--- NOTE | 2017-02-27 11:56 | Diag Imaging Result Doc PS360 ---
EXAM: FLAT/UPRIGHT ABD/1 VIEW CHEST INDICATION: abd distention TECHNIQUE: 3 views COMPARISON: 02/21/2017 FINDINGS: There are nonspecific bowel gas and stool patterns. There is no obstructive bowel pattern. There is no evidence of large volume free abdominal gas. There is no evidence of organomegaly. The central vasculature appears prominent suggesting pulmonary venous congestion. There is no discrete pleural fluid collection or pneumothorax. The cardiac silhouette is borderline prominent but stable. IMPRESSION: 1.Nonspecific abdomen. 2.Suggestion of pulmonary venous congestion. Electronically signed by Alexsander Frazn 02/27/2017 11:54 AM
--- NOTE | 2017-02-27 14:15 | CONSULTATION ---
DATE OF CONSULTATION: 02/27/2017 ATTENDING AND REFERRING PHYSICIAN: Hospitalist. HISTORY OF PRESENT ILLNESS: This 66-year-old female was admitted with exacerbation of congestive heart failure and history of chronic atrial fibrillation. She had a Wilks catheter placed and developed gross hematuria. The patient states that this has never occurred before. She denies any previous urologic problems. She denies any problems voiding or problems with urinary tract infections. She has never had a history of stones or previous urologic surgery. She and her states the urine seems to be getting clearer. A culture was sent of her urine that is growing gram-negative rods. PAST MEDICAL HISTORY: Chronic atrial fibrillation, congestive heart failure, non-Hodgkin's lymphoma with history of stem cell transplant, gastroesophageal reflux disease, left hip pain, COPD, anxiety, and depression. CURRENT MEDICATIONS: Documented on the chart. PAST SURGICAL HISTORY: Right wrist fracture with repair, left hip arthroplasty, tubal ligation, hysterectomy, pericardial window placement in 2016, and most recently a cardiac catheterization. SOCIAL HISTORY: Stopped smoking cigarettes 3 years ago when she had her radiation and stem-cell transplant. She denies alcohol use. ALLERGIES: She is allergic to codeine. REVIEW OF SYSTEMS: She states she has no problems with diabetes, strokes, seizures, or recent pulmonary problems. She has been having some constipation and that has been treated. PHYSICAL EXAMINATION: General: A normally developed, well-nourished, age apparent, white female, oriented in all ways and cooperative. HEENT: Normal for age. Lungs: Clear. Cardiovascular: Irregularly irregular rate and rhythm. Holosystolic murmur. Abdomen: Protuberant, soft, nontender. No hepatosplenomegaly or masses. Normal bowel sounds. Genitourinary: Normal external female. She recently had diarrhea, and the area is saturated as well as the vaginal introitus. Her Wilks catheter is in place. No adnexal masses. Palpably normal bladder. The Wilks balloon is palpable. There are no palpable abnormalities of the bladder. Extremities: Mild lower extremity edema. Neuro: No focal deficits. LABORATORY EVALUATION: She has a white count of 8.4, hemoglobin of 11.7, hematocrit of 34, and platelets are 150,000. Serum electrolytes have a sodium of 132, potassium 4.9, bicarb 25, chloride 98. BUN 16, creatinine 0.7. Urine culture is growing a gram-negative kenna. IMPRESSION: 1. Patient with multiple medical problems and gross hematuria. 2. Urinary tract infection. 3. Anticoagulated. RECOMMENDATIONS: 1. Hold Eliquis, which she has been off of for 2 days, until her urine clears. 2. Culture specific antibiotics when the C and S results are available. 3. If the urine does not continue to clear, we will need a CT urogram and cystoscopic exam. Thank you for this consultation. cc: Ramos Sweet MD
[2017-02-27] MEDS ORDERED: LASIX IV ONE (20:12)
[2017-02-27] MEDS: PERCOCET-5 PO PRN (21:56)
[2017-02-27] MEDS ORDERED: CALMOSEPTINE OINTMENT TOP PRN (22:26)
[2017-02-28] MEDS: CARDIZEM PO SCH ×4 (02:52→21:20)
[2017-02-28 06:06] LABS: BASO% 0.8 % (0.0-0.8); EOS# 0.41 X1000 (0.0-0.7); EOS% 5.5 % (0.0-10.0); HEMATOCRIT 33.3 % (37.0-47.0); HEMOGLOBIN 11.4 g/dL (12.0-16.0); IMM GRAN# 0.07 X1000 (0.0-0.04); IMM GRAN% 0.9 % (0.0-0.5); LYMPH% 32.4 % (20.5-51.1); MANUAL DIFF NEEDED? YES; MCH 36.5 PG (27-31); MCHC 34.2 g/dL (33-37); MCV 106.7 FL (81-99); MONO# 0.87 X1000 (0.11-0.59); MONO% 11.7 % (1.7-9.3); MPV 10.6 FL (7.4-10.4); NEUT% 48.7 % (42.2-75.2); PLT 155 X1000 (130-400); RBC 3.12 XMIL (4.2-5.4)
[2017-02-28 06:24] LABS: AGAP 9; ALBUMIN 2.9 g/dL (3.5-5.0); ALKALINE PHOSPHATASE 263 U/L (32-104); BUN 16 mg/dL (8-22); CALCIUM 8.7 mg/dL (8.8-10.2); CHLORIDE 102 mmol/L (98-107); COSMO 274; GOT 62 U/L (10-30); GPT 13 U/L (10-36); POTASSIUM 4.9 mmol/L (3.5-5.1); SODIUM 137 mmol/L (136-145); TCO2 26 mmol/L (25-35); TOTAL BILIRUBIN 1.54 mg/dL (0.20-1.00); TOTAL PROTEIN 7.7 g/dL (6.3-8.3)
[2017-02-28] MEDS ORDERED: FLUZONE QUAD 2017-2018 SYRINGE IM ONE (06:38)
--- NOTE | 2017-02-28 07:48 | Diag Imaging Result Doc PS360 ---
EXAM: CHEST-PORTABLE INDICATION: CHF TECHNIQUE: One view COMPARISON: 02/27/2017 FINDINGS: Prominent central vasculature suggesting pulmonary venous congestion is approximately stable. No new consolidation is appreciated. Cardiac silhouette is stable. IMPRESSION: Stable chest. Electronically signed by Alexsander Franz 02/28/2017 7:46 AM
[2017-02-28] MEDS: KLOR-CON PO SCH ×2 (08:20→21:20)
[2017-02-28] MEDS: MAG-OX PO SCH ×2 (08:20→21:20)
[2017-02-28] MEDS: COLCRYS PO SCH ×2 (08:20→21:19)
[2017-02-28] MEDS: ROCEPHIN 1 GM in NS 50 ML IV SCH (08:20)
[2017-02-28] MEDS: VALTREX PO SCH ×2 (08:20→21:20)
[2017-02-28] MEDS: ALDACTONE PO SCH ×2 (08:21→21:20)
[2017-02-28] MEDS: MYCOSTATIN POWDER TOP SCH ×2 (08:21→21:19)
[2017-02-28] MEDS: PREDNISONE PO SCH (08:21)
[2017-02-28] MEDS ORDERED: LASIX IV ONE (08:32)
[2017-02-28 08:46] LABS: BANDS 4 % (0-1); EOS 2 % (1-10); LYMPHS 34 % (21-51); MONO 4 % (1-9)
--- NOTE | 2017-02-28 09:01 | PROGRESS NOTE ---
DATE: 02/28/2017 SUBJECTIVE: Ms. Luong is breathing better. We gave her gave her some Lasix yesterday, 60 mg IV. She is breathing much better. Her abdomen is softer. Urine is starting to clear. PHYSICAL EXAMINATION: Vital Signs: Temperature 98.4 degrees, pulse 70, respirations 20, blood pressure 121/71. HEENT: Pupils are equal and round. Lungs: Clear anterolateral. CVP is about 8 cm water pressure. I do not see distended neck veins at this time. Abdomen: Soft. Skin: Is warm and dry. Is and Os: Urine output was about 5..5 L. LAB: From this morning, white count 7410, hematocrit 33, platelet count 155,000. Sodium 137, potassium 4.9, chloride 102, bicarb 26, BUN 16, creatinine 0.7. AST slightly elevated at 62, ALT 13. Chest x-ray, stable chest, prominent central vascular suggesting pulmonary venous congestion, stable. No new consolidation. ASSESSMENT AND PLAN: 1. Patient with restrictive heart failure. Etiology of this could be a mixed picture of myocardial fibrosis and pericardial fibrosis following previous radiation therapy, chemotherapy for lymphoma. Could also have bands of constriction haphazardly distributed around the heart. She appeared a little bit wet yesterday. I gave her some Lasix. She still has 1+ pitting edema. I will give her 40 of Lasix intravenous today. On 01/28/2016, she presented with pericardial tamponade. She underwent pericardial window where they removed at that time 1100 mL of pericardial fluid. The histology revealed chronic and acute inflammation. 2. Atrial fibrillation which is stable, rate controlled. 3. History of lymphoma. 4. Hyperuricemic gout, noted. Encourage oral intake. 5. She had gross hematuria which is resolving. I appreciate Dr. Bradley Sweet' help. Cystoscopy revealed just some dry blood. We will continue. We will leave Wilks catheter alone. Her abdomen is softer. She had a bowel movement yesterday. 6. Review of her orders. I am going to give her just a dose of Lasix this morning. cc: Price Bhat MD
--- NOTE | 2017-02-28 10:22 | PROGRESS NOTE ---
DATE: 02/28/2017 CHIEF COMPLAINT: Shortness of breath. SUBJECTIVE: Ms. Luong had an episode of increasing dyspnea yesterday for which she had to receive Lasix. Of note, Dr. Sweet saw her in consultation, and he has given recommendations as to what to do with her hematuria. Her urinalysis came back abnormal, and she is growing E. coli in the urine. Dr. Price Bhat has already ordered ceftriaxone for her. OBJECTIVE: Blood pressure today is 121/71, temperature 38.4, pulse 70, respirations 20. She is awake. HEENT: Some prominent jugular veins. Chest: Diminished breath sounds at the bases. Heart sounds are irregularly irregular. Now she does have a very easily audible third heart sound which could actually represent a pericardial knock. Her abdomen is nontender, nondistended. Extremities showed trace brawny edema. Neurologic: She follows commands, moves all 4 extremities. DIAGNOSTIC DATA: Blood work today shows hemoglobin is 11.4, white count 7410. She has 56% segmented neutrophils, 4% bands, 34% lymphocytes. Sodium is 137, potassium 4.9, BUN is 16, creatinine 0.7, chloride 102, carbon dioxide 26. Her alkaline phosphatase is 263, AST is 62, bilirubin has come down to 1.54. IMPRESSION: 1. 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 2. Chronic atrial fibrillation. 3. Urinary tract infection. E. coli is growing in the urine. 4. History of lymphoma. 5. History of hyperuricemia and gout. RECOMMENDATIONS: We have started her on low dose diltiazem to control her heart rate and also colchicine. We put her on spironolactone. Dr. Price Bhat has initiated ceftriaxone. At this time, we will continue present therapy. We hope to send all of her information to [facility] early in the morning tomorrow, and hopefully we will get them to see her very soon. Thank you again for the opportunity to participate in her evaluation. Best regards. cc: Marty Segundo MD
[2017-02-28] MEDS: MAALOX PLUS LIQUID PO PRN (15:41)
[2017-03-01] MEDS: CARDIZEM PO SCH ×4 (03:24→21:05)
[2017-03-01] MEDS: PERCOCET-5 PO PRN ×2 (04:16→21:06)
--- NOTE | 2017-03-01 04:29 | PROGRESS NOTE ---
DATE: 02/28/2017 ADDENDUM/CORRECTION: I appreciate Dr. Bradley Sweet' help. I mentioned, I thought she had a cystoscopy. She did not have a cystoscopy. Her urine seems to be clearing. We are holding the Eliquis. Mention that if it does not clear, we may need to see CT urogram and cystogram but at present time, it appears to be clearing and doing well. cc: Price Bhat MD
--- NOTE | 2017-03-01 07:54 | PROGRESS NOTE ---
DATE: 03/01/2017 CHIEF COMPLAINT: Shortness of breath, swelling of the legs. SUBJECTIVE: The patient had a relatively uncomfortable night. She said that she was hurting all over. No specific chest pain. Her breathing is okay. Her urine has cleared up. She does not have any blood in the urine anymore. OBJECTIVE: Vital signs: Blood pressure 119/66, temperature 98 degrees, pulse 88, respirations 16. General: She is awake, alert, oriented, in no distress. Head and neck: Neck veins are still distended. Chest: Diminished breath sounds at bases. No rales noted. Cardiac: Heart sounds are irregularly irregular. She does have a high-pitched third heart sound which I suspect is a pericardial knock. This increases with inspiration. Abdomen: Nontender. No masses or hepatomegaly. Extremities: Showed warm extremities. Pulses palpable. Trace brawny edema. LABORATORY DATA: Sodium 137, potassium 4.9, BUN 16, creatinine 0.7. Bilirubin is down to 1.5, AST 62, alkaline phosphatase 263. IMPRESSION: 1. Patient presenting with congestive heart failure which appears to be of a restrictive type. 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 The patient has an auscultatory third heart sound which I believe is a pericardial knock. It varies with respiration. 2. Chronic atrial fibrillation. 3. Hyperuricemia (gout). 4. Urinary tract infection, E. coli growing in the urine culture which is sensitive to multiple antibiotics. 5. History of lymphoma in the past status post stem cell bone marrow transplant. RECOMMENDATIONS: At this point in time I would probably keep the patient on present medical therapy as outlined. I would keep her on spironolactone, Lasix probably every other day, low-dose diltiazem, colchicine, and we will get her to go to [facility] for a second opinion. We are sending the package of information today to [facility]. Hopefully we will hear from them very soon. I contacted Dr. Morse and Dr. Manning personally over the weekend and they are agreeable to evaluate all the data that we have. I will see if I can do a very limited echo today with my expert poured concrete wall technician here to document further interventricular dependence. Hopefully we will get her home very soon. cc: Marty Segundo MD
[2017-03-01] MEDS: MYCOSTATIN POWDER TOP SCH ×2 (08:23→21:07)
[2017-03-01] MEDS: ROCEPHIN 1 GM in NS 50 ML IV SCH (08:23)
[2017-03-01] MEDS: KLOR-CON PO SCH ×2 (08:23→21:05)
[2017-03-01] MEDS: COLCRYS PO SCH ×2 (08:24→21:05)
[2017-03-01] MEDS: VALTREX PO SCH ×2 (08:24→21:07)
[2017-03-01] MEDS: PREDNISONE PO SCH (08:24)
[2017-03-01] MEDS: ALDACTONE PO SCH ×2 (08:24→21:05)
[2017-03-01] MEDS: MAG-OX PO SCH ×2 (08:24→21:07)
[2017-03-01] MEDS ORDERED: LASIX IV ONE (08:25)
--- NOTE | 2017-03-01 08:46 | PROGRESS NOTE ---
DATE: 03/01/2017 SUBJECTIVE: She is a little bit short of breath. May give her some Lasix this morning but overall feeling better. She was getting her echocardiogram done at the time. PHYSICAL EXAMINATION: Extremities: Legs with no pedal edema. Respiratory: Her lungs were clear. Cardiovascular Examination: Regular rhythm and rate without murmur or S3 noted. Neck: The neck veins were not prominent. Is and Os: Urine output was 2400 mL. LABORATORY DATA: White count 7410, hematocrit 33, platelet count 155,000. Sodium 137, potassium 4.9, chloride 102, BUN 16, creatinine 0.7. Liver functions, transaminases are stable. Her AST was 62, ALT was 13 so really has not changed. ASSESSMENT AND PLAN: 1. Presenting symptoms with congestive heart failure and appears to be restrictive type etiology. Dr. 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 constrictive pericarditis. The patient has an auscultatory 3rd heart sound which she thinks she is a pericardial knock and had a recent right and left heart catheterization that suggested a restrictive pattern. 2. Chronic atrial fibrillation, rate is controlled. 3. Hyperuricemia and gout, aware. 4. Urinary tract infection. It has been treated. E coli grew organism sensitive to antibiotics. 5. History of lymphoma, status post stem cell transplant. Aware. She has had radiation to her chest. The plan is to get follow up at [facility]. They are reviewing the studies and see if she needs surgical resection of the pericardium. 6. We will give her a little Lasix this morning. Overall, she feels better. Her abdomen is soft. She had a bowel movement. She is a little bit stronger and breathing is more comfortable. We have her on colchicine 0.6 mg by mouth twice a day. She is on ceftriaxone which is 1 g every 24 hours, spironolactone 25 mg by mouth twice a day, Valtrex 500 mg twice a day, and Lasix was given yesterday at 40 mg. I will gave her another Lasix today. cc: Price Bhat MD
[2017-03-01] MEDS: MAALOX PLUS LIQUID PO PRN (19:16)
[2017-03-02] MEDS: CARDIZEM PO SCH ×4 (03:10→21:23)
[2017-03-02] MEDS: PERCOCET-5 PO PRN ×4 (03:13→21:23)
[2017-03-02] MEDS: PRILOSEC PO SCH (06:21)
[2017-03-02] MEDS: ROCEPHIN 1 GM in NS 50 ML IV SCH (08:34)
[2017-03-02] MEDS: VALTREX PO SCH ×2 (08:35→21:23)
[2017-03-02] MEDS: MAG-OX PO SCH ×2 (08:35→21:23)
[2017-03-02] MEDS: MYCOSTATIN POWDER TOP SCH ×2 (08:35→21:25)
[2017-03-02] MEDS: ALDACTONE PO SCH ×2 (08:35→21:23)
[2017-03-02] MEDS: PREDNISONE PO SCH (08:35)
[2017-03-02] MEDS: COLCRYS PO SCH ×2 (08:35→21:23)
[2017-03-02] MEDS: KLOR-CON PO SCH ×2 (08:36→21:25)
--- NOTE | 2017-03-02 11:23 | PROGRESS NOTE ---
DATE: 03/02/2017 CHIEF COMPLAINT: Swelling, shortness of breath, weakness. SUBJECTIVE: Ms. Luong is feeling somewhat weak. She has difficulty getting up and about. No chest pain. She does have pain in the shoulders from arthritis that is chronic. OBJECTIVE: Vital signs: Blood pressure is 118/73, temperature 97.6, pulse 69, respirations 18. She is awake. Neck veins are prominent. Chest: Diminished breath sounds at bases. Heart sounds are irregularly irregular. She does have a variable third heart sound which I believe is a pericardial knock. She does have a systolic murmur that varies with respiration. Abdomen: Nontender. Extremities: Trace edema. Neurologic: Follows commands. Moves all 4 extremities. DIAGNOSTIC DATA: Blood work has not been done today. IMPRESSION: 1. The patient has a presentation consistent with a restrictive physiology, diastolic heart failure. 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 This is based on previous extensive pericardial effusion, elevation of inflammatory markers. 2. Chronic atrial fibrillation, rate controlled. 3. Recent urinary tract infection, Escherichia coli, sensitive to multiple antibiotics. 4. Hyperuricemia/gout. 5. History of lymphoma in the past treated with bone marrow transplant, clinically nonrecurrent. RECOMMENDATIONS: At this point in time, we will continue with present intervention that includes low dose diltiazem to control heart rate, colchicine, spironolactone, Lasix as needed. We are waiting to hear from [facility]. I have forwarded all records to Dr. Carlos Morse for a second opinion. Hopefully we will get an appointment or a transfer, depending on the situation. Further advice will be forthcoming. I will request to follow up CBC, BMP and ProBNP. cc: Marty Segundo MD
--- NOTE | 2017-03-02 15:54 | ECHO REPORT ---
ORDER DATE: 03/01/2017 INDICATION: Constrictive pericarditis. FINDINGS: This is a limited study with limited 2D and Doppler evaluations. 1. The right heart appears to be generally enlarged with RV and right atrial enlargement. Specifically the right ventricle appears to have flattening of the intraventricular septum compressing the left ventricle in both systole and diastole consistent with RV pressure and volume overload. There does appear to be mild reduction in RV systolic function. 2. There is what appears to be moderate tricuspid regurgitation. RV systolic pressure is measured at 53 mmHg. 3. I did not see any significant mitral valve prolapse. 4. There is normal LV systolic function. The estimated ejection fraction is greater than 55%. There is limited 2D evaluation of the LV function. 5. No Doppler evaluation of the aortic valve was performed and very limited 2 dimensional pictures of the aortic valve. 6. There may be a very scant amount of pericardial fluid surrounding the right ventricle towards the apex. This does appear to be an extremely small amount. 7. There does appear to be evidence of respirophasic changes specifically measured across the mitral valve with variation on inspiration of more than 25%. cc: MD aMrty Garza MD
[2017-03-03] MEDS: CARDIZEM PO SCH ×4 (03:57→20:53)
[2017-03-03] MEDS: PERCOCET-5 PO PRN ×3 (03:57→18:55)
[2017-03-03 05:40] LABS: BASO% 0.2 % (0.0-0.8); EOS# 0.34 X1000 (0.0-0.7); EOS% 4.1 % (0.0-10.0); HEMATOCRIT 33.4 % (37.0-47.0); HEMOGLOBIN 11.3 g/dL (12.0-16.0); IMM GRAN# 0.02 X1000 (0.0-0.04); IMM GRAN% 0.2 % (0.0-0.5); LYMPH# 2.45 X1000 (1.2-3.4); LYMPH% 29.4 % (20.5-51.1); MANUAL DIFF NEEDED? YES; MCH 36.6 PG (27-31); MCHC 33.8 g/dL (33-37); MCV 108.1 FL (81-99); MONO# 0.93 X1000 (0.11-0.59); MONO% 11.2 % (1.7-9.3); MPV 10.8 FL (7.4-10.4); NEUT% 54.9 % (42.2-75.2); PLT 176 X1000 (130-400); RBC 3.09 XMIL (4.2-5.4)
[2017-03-03 05:48] LABS: AGAP 10; BUN 16 mg/dL (8-22); CALCIUM 8.9 mg/dL (8.8-10.2); CHLORIDE 96 mmol/L (98-107); COSMO 267; POTASSIUM 5.3 mmol/L (3.5-5.1); SODIUM 132 mmol/L (136-145); TCO2 26 mmol/L (25-35)
[2017-03-03] MEDS: PRILOSEC PO SCH (06:20)
[2017-03-03 07:14] LABS: BANDS 4 % (0-1); EOS 4 % (1-10); LYMPHS 38 % (21-51); MONO 10 % (1-9)
[2017-03-03 07:15] LABS: HYPOCHROM 1+
[2017-03-03] MEDS: VALTREX PO SCH ×2 (08:19→20:53)
[2017-03-03] MEDS: MAG-OX PO SCH ×2 (08:19→20:53)
[2017-03-03] MEDS: ROCEPHIN 1 GM in NS 50 ML IV SCH (08:19)
[2017-03-03] MEDS: MYCOSTATIN POWDER TOP SCH ×2 (08:20→21:28)
[2017-03-03] MEDS: COLCRYS PO SCH ×2 (08:20→20:53)
[2017-03-03] MEDS: PREDNISONE PO SCH (08:20)
[2017-03-03] MEDS ORDERED: LASIX IV ONE (15:44)
[2017-03-04] MEDS: CARDIZEM PO SCH ×2 (03:13→09:02)
[2017-03-04 05:54] LABS: AGAP 9; BASO% 0.5 % (0.0-0.8); BUN 17 mg/dL (8-22); CHLORIDE 94 mmol/L (98-107); COSMO 260; EOS# 0.36 X1000 (0.0-0.7); EOS% 4.3 % (0.0-10.0); HEMATOCRIT 31.8 % (37.0-47.0); HEMOGLOBIN 10.8 g/dL (12.0-16.0); IMM GRAN# 0.03 X1000 (0.0-0.04); IMM GRAN% 0.4 % (0.0-0.5); LYMPH% 27.3 % (20.5-51.1); MANUAL DIFF NEEDED? YES; MCH 36.1 PG (27-31); MCV 106.4 FL (81-99); MONO# 0.72 X1000 (0.11-0.59); MONO% 8.6 % (1.7-9.3); MPV 10.6 FL (7.4-10.4); NEUT% 58.9 % (42.2-75.2); PLT 168 X1000 (130-400); POTASSIUM 4.6 mmol/L (3.5-5.1); RBC 2.99 XMIL (4.2-5.4); SODIUM 129 mmol/L (136-145); TCO2 26 mmol/L (25-35)
[2017-03-04] MEDS: PRILOSEC PO SCH (06:12)
[2017-03-04 07:39] LABS: EOS 6 % (1-10); LYMPHS 4 % (21-51); MONO 6 % (1-9)
[2017-03-04 07:48] VITALS: BP 136/85
[2017-03-04] MEDS ORDERED: ALDACTONE PO SCH (09:00)
[2017-03-04] MEDS ORDERED: LASIX IV SCH (09:00)
[2017-03-04] MEDS: VALTREX PO SCH (09:02)
[2017-03-04] MEDS: COLCRYS PO SCH (09:03)
[2017-03-04] MEDS: PREDNISONE PO SCH (09:03)
[2017-03-04] MEDS: MYCOSTATIN POWDER TOP SCH (09:03)
[2017-03-04] MEDS: MAG-OX PO SCH (09:03)
[2017-03-04] MEDS ORDERED: SAMSCA PO ONE (09:44)
--- NOTE | 2017-03-04 10:29 | PROGRESS NOTE ---
DATE: 03/04/2017 CHIEF COMPLAINT: Swelling, irregular heartbeat, shortness of breath. SUBJECTIVE: Mrs. Luong has had a not-so-good night. She is short of breath. She is uncomfortable. She has noticed swelling of her flank and legs. OBJECTIVE: Vital signs: Blood pressure is 136/85, temperature 98.1, pulse 81, respirations 16. General: She is awake, alert, oriented. HEENT: Neck veins distended. Chest: Diminished breath sounds at bases. Cardiac: Heart sounds irregularly irregular with a 3rd heart sound. Abdomen: Somewhat distended. Extremities: 1+ to 2+ brawny edema and extends all the way to the upper thighs. Neurological: Follows commands, moves four extremities. BLOOD WORK: Sodium is 129, potassium 4.6, BUN is 17, creatinine 0.8. IMPRESSION: 1. Patient who has congestive heart failure [place] [employer] Class 4 secondary to restrictive physiology. 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 2. Chronic atrial fibrillation/persistent atrial fibrillation. 3. Hematuria, urinary tract infection which is being treated with antibiotics. She is growing E. coli which is sensitive to all antibiotics. RECOMMENDATION: At this point in time, we will try to get her transferred to [facility] for specialized management of constrictive pericarditis that is not responding to conventional management here. I believe she will probably require pericardial stripping. I have contacted Dr. Carlos Morse. He is agreeable to transfer her. Will make the proper arrangements. In the meantime, I am going to give her one dose of Samsca for hyponatremia. Further intervention will be left to the expertise of the [facility] heart failure team. I am anticipating that hopefully we will get her to the operating room within the next few days and deal with her constrictive pericarditis more definitively. cc: Marty Segundo MD
--- NOTE | 2017-03-04 13:26 | PROGRESS NOTE ---
DATE: 03/03/2017 SUBJECTIVE: This morning, Ms. Luong refers to be doing a little better. She said her shortness of breath is gradually improving. OBJECTIVE: Vital Signs: Her blood pressure is 113/85, pulse of 77, respirations 18, temperature 97.9 degrees. General: Ms. Luong is a 66-year-old female. She is in bed and did not seem to be in any remarkable distress. HEENT: Mucosa is pink and moist, anicteric, acyanotic. Neck is supple. Positive JVD with also dilation of the upper torso veins. Chest: Air entry is bilaterally reduced. There are some crepitations in both lower bases. Cardiovascular: Regular rate. Occasionally, there is extrasystole beats, and there is also pericardial knock. Abdomen is soft and is distended. Bowel sounds are present. Extremities: About 3+ pedal edema extending even on the way to the abdominal wall laterally and the lateral chest wall. APPOINTMENT SETTER : Patient is awake and alert. Oriented. There is no focal neurological deficit. LABORATORY DATA: WBC is 8.33. Hemoglobin is 11.3, platelet count of 108,000. Chemistry is reviewed. Sodium is 132, potassium is 5.3, chloride is 99, creatinine is normal. ProBNP is 2558. Patient's urine output is 1100. Patient has a positive balance of 1421. CURRENT MEDICATIONS: Have been reviewed. Patient is on 1. Ceftriaxone 1 g daily. 2. Colchicine 0.3 b.i.d. 3. Diltiazem 30 mg q.6. 4. Prednisone 5 mg daily. 5. Valacyclovir 500 mg daily. ASSESSMENT: 1. Fluid overload with echo suggestive of right ventricle overload. Catheterization suggestive of constrictive pericarditis. 2. Retroperitoneal lymph nodes. The patient has a history of diffuse B-cell lymphoma, status post transplant and it sounds like this could potentially be a recurrence of disease. I spoke with Dr. Jean, and he spoke to the patient as well, and he recommended the patient to follow up with her oncologist in [place]. 3. History of recent pericardial effusion, status post window. 4. Chronic atrial fibrillation, currently rate controlled. 5. History of hyperuricemia. 6. Recent urinary tract infection by Escherichia coli. The patient has had sufficient treatment with ceftriaxone. I will, therefore, go ahead and discontinue the antibiotics. 7. Macrocytic anemia etiology unclear. B12 and Folate levels normal. DISPOSITION: Up to now, we are still waiting cardiology arrangements for patient to go to [facility] for a second opinion. We will continue with her current care and recommendations from cardiology. I have been told that the patient's insurance has declined her stay for the past 2 days. We will be waiting on further recommendations from Dr. Segundo if he thinks the patient can go home. cc: Roly Garcia MD [facility]
--- NOTE | 2017-03-05 10:14 | DISCHARGE SUMMARY ---
ADMISSION DATE: 02/21/2017 DISCHARGE DATE: 03/04/2017 CONSULTATIONS: Dr. Segundo of Cardiology. PERTINENT PROCEDURES: 1. Chest and abdomen CTA shows retroperitoneal adenopathy, which is likely related the patient's lymphoma, more extensive than it was visible on previous study on 2013. Generalizing particularly in the flanks, improved right pleural effusion. No evidence of pulmonary emboli or aneurysm. 2. Head CT showed no hemorrhage. 3. Negative brain/head CT. 4. Echocardiogram limited views showed an EF of 60%. Showed septal wall motion is abnormal in the septum. Flattens during diastole rendering a D shape to the left ventricle cross-section during diastole. Right ventricle volume overload suggested. 5. Abdominal ultrasound showed collapsed gallbladder with nonspecific wall thickening, mild dilatation of the right renal pelvis. Uncertain significance. No definite renal mass. 6. Right and left heart catheterization showed definite restrictive physiology. Dr. Segundo prove the presence of discordant systolic beats between the right ventricle: The left ventricle in spite of several respiratory maneuvers performed, although there were times when the LVEDP really drops as low as 15 mm with inspiration. 7. Abdominal x-ray showed nonspecific abdomen suggesting pulmonary venous congestion. 8. Echocardiogram with limited views. Again showed an EF of 55%. There is scant amount of pericardial fluid surrounding the right ventricle towards the apex. Evidence of respirophasic changes specifically measured across the mitral valve with variation on inspiration more than 25%. Atrial enlargement, specifically the right ventricle appears to have flattening of the intraventricular septum compressing the left ventricle in both systole and diastole, consistent with RV pressure and volume overload. There does appear to be a mild reduction in RV systolic function. DISCHARGE DIAGNOSES: 1. Congestive heart failure, [place] Heart Association Class 4 secondary to restrictive physiology. Suspicion very strong for constrictive pericarditis. The patient is being transferred to [facility]. 2. Chronic atrial fibrillation. Persistent atrial fibrillation being transferred to [facility]. 3. Hematuria. Urinary tract infection showing Escherichia coli, being treated with antibiotics. 4. Hyponatremia. Patient has been treated with Samsca. 5. Hyperuremia. 6. Gout. 7. Lymphoma history. Status stem-cell transplant. She has had radiation to her chest. All of her cath studies are being evaluated at [facility] to see if she needs a surgical resection of her pericardium. Again, she is being transferred to [facility] today. 8. Metabolic encephalopathy. Multifactorial secondary to hepatic encephalopathy and hypoxemia, resolved. 9. Hypoxia, resolved. 10. Hypokalemia, resolved. 11. Transaminitis. 12. Hypertension. HOSPITAL COURSE: Ms. Luong is a 66-year-old, female with a history of CHF, chronic atrial fibrillation, non-Hodgkin's lymphoma status post stem-cell transplant and chest radiation and chemotherapy, recently admitted to the hospital at the beginning of December. Was discharged with a diagnosis of heart failure, predominantly right-sided symptoms. They requested that she follow up with her doctor at [place] to rule out pulmonary hypertension. The patient reported that she had been [place]. Her doctor did evaluate her and reported that this was not the cause of her heart failure complications. She had progressively worsening weakness. She had been unable to get out of bed. Her muscle strength was very weak upon examination. She did develop some confusion. She was found to be hypokalemic with a potassium of 2.8. Her liver enzymes were elevated. Her proBNP was 7665. Cardiac enzymes were negative. Her EKG showed atrial fibrillation with an incomplete right bundle-branch block with an ST and T-wave abnormality with a rate of 71. She was also slightly hypoxic with an O2 saturation of 90% on room air. She also had some bilateral nonpitting edema of the lower extremities as well as in her abdomen and noted JVD and fine bilateral crackles. CT of the head was negative for any acute intracranial abnormality. Chest x-ray showed mildly prominent heart, otherwise negative. The patient was initially admitted for metabolic encephalopathy, multifactorial, as well as congestive heart failure exacerbation. She was placed on strict daily weights, I and O's with a Cardiology consult, neurological checks, supplemental O2. Replenished her electrolytes. Checked a chest and abdomen CTA given her transaminitis. Cardiology, given her new obtained echos, felt that she had a constrictive pericarditis given the cardiac imaging findings and preferred to have her transferred for expert consultation for cardiovascular with [facility], anticipating that I may suggest a pericardiectomy, and on Dr. Segundo's part, he strongly recommended to do a right and left heart catheterization with simultaneous measurement pressures on both ventricles to confirm his suspicion. She did undergo her right and left heart catheterization. 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 They felt that the patient may benefit from pericardial stripping. On 2015, she did present with a pericardial tamponade for which she did undergo a pericardial window but they did remove 1100 mL of pericardial fluid. Histology revealed chronic and acute inflammation at that time. To help with her heart rate, he did add low-dose Cardizem and digoxin and he added colchicine to cover the possibility of chronic pericarditis. He has kept in close contact with [facility] for transfer. Also added spironolactone. All her information have been sent to [facility], again, just waiting on a bed. In the interim, her urinalysis came back abnormal. She was growing out E. coli. She was started on IV antibiotics. After receiving reviewing all the information, [facility] has accepted the patient. She has been transferred to [facility] at this time for further evaluation and management. VITAL SIGNS AT TIME OF DISCHARGE: Temperature is 98.1 degrees, heart rate 81, respirations 16, blood pressure 136/85, O2 is 96% on room air. DISCHARGE DIET: Healthy heart. DISCHARGE MEDICATIONS: As per Dr. Garcia and Dr. Segundo. DISPOSITION: Patient transferred to [facility] for further evaluation and further treatment. DISCHARGE TIME: Greater than 35 minutes. Dictated by PRICILLA Cardoza for Roly Garcia MD cc: Roly Garcia MD [facility]
--- NOTE | 2017-03-15 14:51 | ED EKG INTERP ---
This chart was entered by Saskia Ervin Scribe, acting as scribe for Bertin Gomes DO. EKG Interpretation - EKG Time of EKG reading by physician:: 19:37 EKG Read and Signed by:: Bertin Gomes EKG Interpretation (*Must complete 3 of following elements*): Abnormal Rate: 71 (cannot rule out anterior infarct, age undetermined) Rhythm: atrial fibrillation with a competing junctional pacemaker QRS: RBB (incomplete), other (low voltage QRS) Comments: ST & T wave abnormality, consider lateral ischemia Attestation - Physician/ LORENA Attestation Patient care was provided by Advanced Practice Provider:: No The physician spent face to face time with patient:: Yes Advanced Practice Provider documentation review:: Supervising physician onsite and consulted in the evaluation and care of this patient. The physician did have a face to face encounter with the patient. This chart was documented by the indicated scribe, (Saskia Ervin Scribe) and accurately reflects the services I performed and decisions made by me, Bertin Gomes DO, as attested by the provider's signature.
== END 2017-03-04 11:14 | disposition short-term general hospital (02) ==
LOC: ED 19:03 → EDIPHOLD 23:59 → SUATTDRO 23:59 → 3S 02-22 18:04
PROVIDERS: ATTEND Internal Medicine